=== PATIENT | female | born 1955 | race Two or more races ===

== ENCOUNTER 2024-01-07 17:17 | Inpatient (IN) | payer MEDICAID, SELFPAY ==
[2024-01-07 17:35] VITALS: BMI 36.1
[2024-01-07 17:37] VITALS: BP 172/85; PULSE 82; RESP 19; TEMP 39.2; O2SAT 100
--- NOTE | 2024-01-07 17:50 | XR_ITS ---
Examination: PA chest single view Technique: Upright PA chest single view Exam date and time: January 07, 2024 1807 hrs. Indications: Onset fever today. Findings: Normal heart size No pneumonia or pulmonary edema. The osseous structures are intact Impression: No active disease
--- NOTE | 2024-01-07 17:51 | PD.EDRME ---
Rapid Medical Screening Exam RME Arrival date/time: 01/07/24 17:17 This is a 68-year-old female presents to the emergency department with complaints of fever, chills dysuria does report she started her first radiation for cervical cancer yesterday. I have greeted and performed a focused initial assessment of this patient. Initial appropriate labs ordered at this time. A comprehensive ED assessment and evaluation of the patient and analysis of all test and completion of medical decision making process will be conducted by additional ED provider. Chief Complaint: Weakness Time Seen by Provider: 01/07/24 17:43 Vital signs: Vital Signs Temperature 102.6 F H 01/07/24 17:37 Pulse Rate 82 01/07/24 17:37 Respiratory Rate 19 01/07/24 17:37 Blood Pressure 172/85 H 01/07/24 17:37 Pulse Oximetry (%) 100 01/07/24 17:37 Oxygen Delivery Method Room Air 01/07/24 17:37
[2024-01-07 18:23] LABS: Collection Type, Urine Clean Catch
[2024-01-07 18:27] LABS: Lactate (Lactic Acid) 1.5 mMol/L (0.4-2.0)
[2024-01-07 18:29] LABS: Basophils % (Auto) 0 % (0-2.5); Eosinophils % (Auto) 0 % (0-10); Hematocrit 36.1 % (36.0-46.0); Immature Granulocytes % (Auto) 0 % (0-0); Immature Granulocytes Auto 0.04 Thou/mm3 (0.00-0.00); Lymphocytes # (Auto) 0.5 Thou/mm3 (1.0-4.8); Lymphocytes % (Auto) 4 % (10-50); Mean Corpuscular HGB Conc 33.2 g/dl (31.0-37.0); Mean Corpuscular Hemoglobin 29.7 pg (25.0-35.0); Mean Corpuscular Volume 89 fL (80-100); Monocytes # (Auto) 0.3 Thou/mm3 (0.0-0.8); Monocytes % (Auto) 2 % (0-12); Neutrophils # (Auto) 12.2 Thou/mm3 (1.8-7.7); Neutrophils % (Auto) 94 % (37-80); Nucleated Red Blood Cell % 0 /100 WBC (0); Platelet Count 222 Thou/mm3 (140-440); RDW Standard Deviation 47.3 fL (36.4-46.3); Red Blood Count 4.04 Miln/mm3 (4.00-5.20)
[2024-01-07 18:30] LABS: Bacteria,Urine Rare; Bilirubin,Urine Negative (Negative); Blood,Urine 1+ (Negative); Clarity,Urine Turbid (Clear/Hazy); Color,Urine Lt-Yellow (Lt Yel-Yel); Culture Indicated,Urine Yes; Glucose, Urine Negative (Negative); Ketones,Urine Negative (Negative); Leukocyte Esterase,Urine Positive (Negative); Nitrite,Urine Positive (Negative); Protein,Urine Trace (Neg - Trace); RBC,Urine 14 /hpf (0-3); Specific Gravity,Urine 1.013 (1.001-1.035); Squamous Epithelial Cell,Urine 2 /hpf (0-5); Urobilinogen,Urine Negative mg/dL (0.0-1.0); WBC,Urine 362 /hpf (0-5)
[2024-01-07 18:48] LABS: B-Type Natriuretic Peptide 244 pg/mL (0-100)
[2024-01-07 18:49] LABS: Partial Thromboplastin Time 26.5 Seconds (22.0-36.0); Prothrombin Time 11.4 Seconds (9.0-12.2)
[2024-01-07 18:59] LABS: Alanine Aminotransferase 27 U/L (10-49); Albumin/Globulin Ratio 1.2 (1.2-2.2); Alkaline Phosphatase 89 U/L (46-116); Anion Gap 8 (7-16); Aspartate Amino Transferase 19 U/L (0-34); BUN/Creatinine Ratio 23 Ratio (12-20); Bilirubin,Total 1.4 mg/dL (0.3-1.2); Blood Urea Nitrogen 21 mg/dL (9-23); Calcium 9.2 mg/dL (8.3-10.6); Calcium (Corrected) 9.2 mg/dL (8.5-10.1); Carbon Dioxide 23.3 mMol/L (20.0-31.0); Chloride 105 mMol/L (98-107); Creatinine (Component) 0.9 mg/dL (0.6-1.3); Estimated Creatinine Clearance 62.9 mL/min (>60); Globulin 3.4 gm/dL (2.3-3.5); Glucose 101 mg/dL (74-106); Lipase 30 U/L (12-53); Magnesium 1.8 mg/dL (1.6-2.6); Osmolality,Calculated 274 (275-295); Potassium 3.4 mMol/L (3.4-5.1); Procalcitonin 0.14 ng/ml (0.0-0.49); Sodium 136 mMol/L (136-145); Total Protein 7.4 gm/dL (5.7-8.2); Troponin I < 0.020 ng/mL (0.0-0.045); eGFR > 60 See Note
[2024-01-07 21:48] VITALS: BP 127/77; PULSE 70; RESP 16; TEMP 36.7; O2SAT 99
[2024-01-07] MEDS: ACETAMINOPHEN 500 MG TABLET 1000 MG PO (21:53)
--- NOTE | 2024-01-07 23:51 | EDNOTE_ITS ---
ED Fever RME/HPI General Chief Complaint: Weakness Stated Complaint: HIGH BP AFTER FIRST CHEMO TREATMENT TODAY; SOB Time Seen by Provider: 01/07/24 17:43 Arrival date/time: 01/07/24 17:17 RME / HPI RME / HPI Narrative: 01/07/24 17:17 A 68-year-old female patient with past medical history of cervical cancers, hypertension, started her first radiation therapy yesterday presented today due to fever and chills for 1 day. On questioning patient reported that she has urinary frequency but she denied any dysuria or change in color of urine. Patient also reported that she has epigastric abdominal pain and she believes it is from her gastritis in which she was diagnosed by her PCP and she is taking some pills for that. Patient denied any nausea or vomiting denied any diarrhea or constipation and denied any cough or shortness of breath. Related Data Home Medications ?Medication ?Instructions ?Recorded ?Confirmed hydrocodone 5 mg-acetaminophen 325 1 tab PO Q6H PRN Pain, Moderate 01/08/24 01/08/24 mg tablet hydroxyzine HCl 50 mg tablet 50 mg PO QDAY 01/08/24 01/08/24 ibuprofen 800 mg tablet 800 mg PO TID 01/08/24 01/08/24 losartan 25 mg tablet 25 mg PO QDAY 01/08/24 01/08/24 olanzapine 10 mg tablet 10 mg PO HS 01/08/24 01/08/24 prochlorperazine maleate 5 mg 5 mg PO Q6HR PRN Nausea And 01/08/24 01/08/24 tablet (Compazine) Vomiting Allergies Allergy/AdvReac Type Severity Reaction Status Date / Time No Known Allergies Allergy Verified 01/07/24 17:19 Physical Exam Narrative Physical exam: GEN: AOx3, able to speak full sentences HEENT: NC/AC, PERRLA, oral mucosa moist, neck supple CVS: RRR, S1-S2 present, no murmurs appreciated RESP: CTAB GI: soft,non distended, non tender, NBS MSK: able to move all 4 limbs, no lower extremity edema SKIN: warm and dry INTENSIVE CARE MEDICINE SPECIALIST: CN II-XII and Sensation grossly intact. Course Quality Measures none Orders Category Date Time Status Bedside COVID-19 Antigen Test NOW Care 01/07/24 17:50 Active Bedside Influenza A&B Antigen Test NOW Care 01/07/24 17:50 Completed EKG (ED ONLY) *Do not use* NOW Care 01/07/24 17:24 Completed Insert IV NOW Care 01/08/24 00:21 Active EKG (ED Only) Stat Exams 01/07/24 17:24 Ordered XR chest 1V portable Stat Exams 01/07/24 17:50 Completed B-Type Natriuretic Peptide Stat Lab 01/07/24 18:19 Completed Blood Culture (Lab) Stat Lab 01/07/24 18:21 Received CBC Stat Lab 01/07/24 18:19 Completed Comprehensive Metabolic Panel Stat Lab 01/07/24 18:19 Completed Lactate (Lactic Acid) Stat Lab 01/07/24 18:19 Completed Lipase Stat Lab 01/07/24 18:19 Completed Magnesium Stat Lab 01/07/24 18:19 Completed Partial Thromboplastin Time Stat Lab 01/07/24 18:19 Completed Procalcitonin Stat Lab 01/07/24 18:19 Completed Prothrombin Time with INR Stat Lab 01/07/24 18:19 Completed Troponin I Stat Lab 01/07/24 18:19 Completed Urinalysis Stat Lab 01/07/24 18:16 Completed Urinalysis, C/S if Indicated Stat Lab 01/07/24 18:16 Completed Urine Culture Stat Lab 01/07/24 18:16 Received Acetaminophen Tab [Tylenol ES Tab] Med 01/07/24 17:51 Discontinued 1,000 mg PO X1 ONE Sodium Chloride 0.9% 1000 ml [Ns] 1,000 ml Med 01/07/24 23:38 Discontinued IV 999 mls/hr Sodium Chloride 0.9% 500 ml [Ns] 500 ml Med 01/07/24 23:38 Discontinued IV 999 mls/hr cefTRIAXone/D5w 1gm IV premix [Rocephin/D5w 1gm IV Med 01/07/24 23:39 Discontinued premix] 50 ml IV DAILY@2100 Vital Signs Vital signs: Vital Signs Temperature 102.6 F H 01/07/24 17:37 Pulse Rate 82 01/07/24 17:37 Respiratory Rate 19 01/07/24 17:37 Blood Pressure 172/85 H 01/07/24 17:37 Pulse Oximetry (%) 100 01/07/24 17:37 Oxygen Delivery Method Room Air 01/07/24 17:37 Fever MDM Narrative MDM Narrative:: Patient was found to have fulfill sepsis criteria with temperature of 102.6 and WBC of 13. Chest x-ray was negative however urine analysis showed +362 WBCs and 14 RBCs and positive bacteria. Patient found to have sepsis, sepsis alert was initiated patient was given IV fluid boluses and was started on ceftriaxone single dose. To bilirubin was found to be 1.4, lactic acid 1.5 normal, troponin within normal limits and BNP was mildly elevated of 244. Patient data External records reviewed:: [facility] previous records Clinical information provided by:: patient, EMS and family Social determinants that could affect healthcare access:: none Patient has the following chronic illnesses:: Cervical cancer How is presenting disease/condition affected by chronic disease/condition?: exacerbated by Evaluation data The following diagnostics were reviewed and interpreted by me:: lab results, radiology exam(s) and EKG tracing(s) Lab and/or radiology exams considered but not ordered:: None Interpretation Summary: Sepsis secondary to UTI Patient will need further workup to rule out malignancy of the urinary bladder. Medications / Prescriptions Medications or Prescriptions considered but not ordered:: None Medication administrations:: Medication Administration History Acetaminophen (Acetaminophen 325 Mg Tablet) 650 mg PO Q6H PRN PRN Reason: Fever >101.5 Stop: 02/07/24 00:38 Enoxaparin Sodium (Enoxaparin Sod Inj 40 Mg/0.4 Ml Syringe) 40 mg SC QDAY [facility] Stop: 01/22/24 08:59 Sodium Chloride (Ns) 1,000 mls @ 100 mls/hr IV .Q10H ONE Stop: 01/08/24 10:44 Last Admin: 01/08/24 01:35 Dose: 100 mls/hr Documented By: ARNOLDO Ceftriaxone Sodium/Dextrose (Rocephin/D5w 1gm Iv Premix) 50 mls @ 100 mls/hr IV QDAY JAMMIE Stop: 01/15/24 08:59 Pantoprazole Sodium (Pantoprazole 40 Mg Tablet) 40 mg PO QDAY [facility] Stop: 02/07/24 08:59 Discontinued Medications Acetaminophen (Acetaminophen 500 Mg Tablet) 1,000 mg PO X1 ONE Stop: 01/07/24 17:52 Last Admin: 01/07/24 21:53 Dose: 1,000 mg Documented By: ARNOLDO Sodium Chloride (Ns) 500 mls @ 999 mls/hr IV .Q31M ONE Stop: 01/08/24 00:08 Last Infusion: 01/08/24 02:25 Dose: Infused Documented By: Admin: 01/08/24 00:28 Dose: 999 mls/hr Documented By: ARNOLDO Sodium Chloride (Ns) 1,000 mls @ 999 mls/hr IV .Q1H1M ONE Stop: 01/08/24 00:38 Last Infusion: 01/08/24 02:25 Dose: Infused Documented By: Admin: 01/08/24 00:28 Dose: 999 mls/hr Documented By: ARNOLDO Ceftriaxone Sodium/Dextrose (Rocephin/D5w 1gm Iv Premix) 50 mls @ 100 mls/hr IV DAILY@2100 JAMMIE Stop: 01/14/24 23:38 Last Infusion: 01/08/24 01:28 Dose: Infused Documented By: Admin: 01/08/24 00:29 Dose: 100 mls/hr Documented By: ARNOLDO None Consultations Consultation(s) initiated? (list below): Yes Diagnosis Fever Differential Diagnosis: sepsis Most likely diagnosis given after review of the tests above:: Sepsis secondary UTI Admission Indicated Admission indicated?: indicated Admission Request Was there a request for admission?: Yes Admission Attestation Admission request attestation: Discussed case with [] from Hospitalist service regarding admission. Discussed patients ED course, exam findings, labs, and radiology results. The Hospitalist [agrees,declines] to accept the patient for admission. Disposition Plan Disposition Plan: Admit Discharge Plan Plan Patient Disposition: Admit Acute Care w/in Hospital Problem List Clinical Impression: Sepsis
[2024-01-08] VITALS (8 sets, daily range): BP systolic 117–138; BP diastolic 60–79; PULSE 55–78; RESP 16–18; TEMP 36–38; O2SAT 95–98; BMI 37.3
[2024-01-08] MEDS: SODIUM CHLORIDE 0.9% 1000 ML 1,000 ML 999 ML IV (00:28)
[2024-01-08] MEDS: SODIUM CHLORIDE 0.9% 500 ML 500 ML 999 ML IV (00:28)
[2024-01-08] MEDS: cefTRIAXone/D5w 1gm IV premix 50 ML IV ×2 (00:29→09:26)
--- NOTE | 2024-01-08 01:22 | ESHP_ITS ---
Documentation for date of: 01/08/24 [facility] History of Present Illness Chief complaint: Fever and chills History of present illness: 68 y/o F with PMHx significant for anxiety, hypertension, cervical cancer with recently started chemo and radiation therapy presenting from home with chief complaint of fever and chills x 1 day. Patient had her radiation therapy session Wednesday?Wednesday, chemotherapy on Wednesday. Patient began experiencing burning epigastric pain with decreased appetite yesterday. Today she noted severe subjective fevers and chills prompting ER visit. Patient also notes urinary hesitancy. Patient denies nausea, vomiting, chest pain, shortness of breath. ED COURSE: Labs significant for: WBC 13, UA positive nitrites, positive leuk esterase, 360 WBCs, rare bacteria. Blood and urine cultures pending. Imaging significant for: Chest x-ray unremarkable. Patient met 2/4 SIRS criteria: Fever 102.6, leukocytosis 13.0. Patient received 1 g Tylenol, 1 dose of Rocephin, 1.5 L bolus normal saline in the ED. PMH: Hypertension, anxiety, cervical cancer PSH: None SH: Denies alcohol and tobacco use. Denies illicit drug use. Allergies:?NKDA Medications: [place], hydroxyzine, olanzapine, Compazine, losartan Review of Systems Review of Systems Systems Reviewed: All systems reviewed, normal except as documented Past Medical History Past Medical History Comments PMH COMMENT: PMH: Hypertension, anxiety, cervical cancer PSH: None SH: Denies alcohol and tobacco use. Denies illicit drug use. Allergies:?NKDA Medications: [place], hydroxyzine, olanzapine, Compazine, losartan Exam Vital Signs Temp Pulse Resp BP Pulse Ox O2 Del Method 98.6 F 68 18 132/67 H 98 Room Air 01/08/24 00:52 01/08/24 00:52 01/08/24 00:52 01/08/24 00:52 01/08/24 00:52 01/08/24 00:52 Narrative Exam PE: Gen: Well-developed and well-nourished. HEENT: NCAT, PERRLA, EOMI, MMM, anicteric conjunctivae. CVS: normal S1 and S2. RRR. No M/R/G. Resp: CTA B/L. No rhonchi, rales, crackles or wheezing. Abd: soft, non-distended. Mild epigastric tenderness, mild right lower quadrant tenderness. MSK: Good ROM in BUE & BLE. No edema or rash. Neuro: CN II-XII grossly intact. Strength 5/5 in BUE & BLE. Alert and oriented x3. Psych: appropriate mood and affect. Results: Labs 01/07/24 18:19 01/07/24 18:19 Labs: Short CBC 01/07/24 Range/Units 18:19 WBC 13.0 H (3.6-11.0) Thou/mm3 Hgb 12.0 (12.0-16.0) g/dL Hct 36.1 (36.0-46.0) % Plt Count 222 (140-440) Thou/mm3 BMP 01/07/24 18:19 Sodium 136 Potassium 3.4 Chloride 105 Carbon Dioxide 23.3 BUN 21 Creatinine 0.9 Glucose 101 Calcium 9.2 Cardiac Enzymes 01/07/24 Range/Units 18:19 Troponin I < 0.020 (0.0-0.045) ng/mL Liver Function 01/07/24 Range/Units 18:19 Total Bilirubin 1.4 H (0.3-1.2) mg/dL AST 19 (0-34) U/L ALT 27 (10-49) U/L Alkaline Phosphatase 89 (46-116) U/L Albumin 4.0 (3.4-4.8) gm/dL Urine 01/07/24 Range/Units 18:16 Urine Color Lt-Yellow (Lt Yel-Yel) Urine Clarity Turbid A (Clear/Hazy) Urine pH 6.0 (5.0-7.0) Ur Specific [place] 1.013 (1.001-1.035) Urine Protein Trace (Neg - Trace) Urine Glucose (UA) Negative (Negative) Quality Measures Quality Measures VTE prophylaxis Advance care planning discussed with:: patient and child Medications Home Medications and Allergies Home Medications ?Medication ?Instructions ?Recorded ?Confirmed ?Type hydrocodone 5 mg-acetaminophen 325 1 tab PO Q6H PRN Pain, Moderate 01/08/24 01/08/24 History mg tablet hydroxyzine HCl 50 mg tablet 50 mg PO QDAY 01/08/24 01/08/24 History ibuprofen 800 mg tablet 800 mg PO TID 01/08/24 01/08/24 History losartan 25 mg tablet 25 mg PO QDAY 01/08/24 01/08/24 History olanzapine 10 mg tablet 10 mg PO HS 01/08/24 01/08/24 History prochlorperazine maleate 5 mg 5 mg PO Q6HR PRN Nausea And 01/08/24 01/08/24 History tablet (Compazine) Vomiting Allergies Allergy/AdvReac Type Severity Reaction Status Date / Time No Known Allergies Allergy Verified 01/07/24 17:19 Visit Medications Acetaminophen (Acetaminophen 325 Mg Tablet) 650 mg PO Q6H PRN PRN Reason: Fever >101.5 Stop: 02/07/24 00:38 Enoxaparin Sodium (Enoxaparin Sod Inj 40 Mg/0.4 Ml Syringe) 40 mg SC QDAY [facility] Stop: 01/22/24 08:59 Ceftriaxone Sodium/Dextrose (Rocephin/D5w 1gm Iv Premix) 50 mls @ 100 mls/hr IV DAILY@2100 JAMMIE Stop: 01/14/24 23:38 Last Admin: 01/08/24 00:29 Dose: 100 mls/hr Sodium Chloride (Ns) 1,000 mls @ 100 mls/hr IV .Q10H ONE Stop: 01/08/24 10:44 Ceftriaxone Sodium/Dextrose (Rocephin/D5w 1gm Iv Premix) 50 mls @ 100 mls/hr IV QDAY [facility] Stop: 01/15/24 08:59 Discontinued Medications Acetaminophen (Acetaminophen 500 Mg Tablet) 1,000 mg PO X1 ONE Stop: 01/07/24 17:52 Last Admin: 01/07/24 21:53 Dose: 1,000 mg Sodium Chloride (Ns) 500 mls @ 999 mls/hr IV .Q31M ONE Stop: 01/08/24 00:08 Last Admin: 01/08/24 00:28 Dose: 999 mls/hr Sodium Chloride (Ns) 1,000 mls @ 999 mls/hr IV .Q1H1M ONE Stop: 01/08/24 00:38 Last Admin: 01/08/24 00:28 Dose: 999 mls/hr Assessment & Plan Plan 68 y/o F with PMHx significant for anxiety, hypertension, cervical cancer with recently started chemo and radiation therapy presenting from home with chief complaint of fever and chills x 1 day, admitted for sepsis secondary to UTI. #Sepsis secondary to #UTI Patient presented with chief complaint of fevers and chills. UA on admission showed positive nitrates, positive leukocyte esterase, 362 WBCs, rare bacteria. Patient notes urinary hesitancy. Patient met 2/4 SIRS criteria: Fever 102.6, leukocytosis 13.0. Patient received 1 g Tylenol, 1.5 L bolus normal saline, Rocephin in the ED. -Ceftriaxone 1 g IV daily (started 01/06) -Tylenol 650 mg p.o. every 6 hours as needed for fever or pain -IVF: Normal saline 100 mL/h -Blood/urine cultures pending, follow-up #Cervical cancer #Potential gastritis Patient history of cervical cancer, started chemotherapy and radiation therapy this week. Shortly after starting patient developed epigastric burning pain and decreased appetite. Suspect gastritis in setting of chemotherapy. -Protonix 40 mg p.o. daily #Hypertension #Anxiety Patient history of hypertension, anxiety. Treated with outpatient medications. Med rec's pending. -Consider resuming home meds status post med rec's DVT prophylaxis: Lovenox GI prophylaxis: Protonix Diet: Cardiac Lines: Peripheral IV Code status: Full code Plan of care discussed with senior resident Dr. Musa PGY?[address] Kapoor. Altaf Persaud MD PGY-1 Senior resident attestation: I discussed with and supervised the photo intern physician who took care of this patient. I personally saw and examined the patient and discussed the assessment and plan with the entire medicine team, including my attending Dr. Kapoor , I agree with the assessment and plan as documented above. MD Dimple PGY2 Attending Provider Attestation/Addendum Pt was evaluated and plan formulated together with the housestaff team. I have reviewed the residents note above and agree with most of its content. Please refer to the residents note for additional details.
[2024-01-08] MEDS: SODIUM CHLORIDE 0.9% 1000 ML 1,000 ML 100 ML IV (01:35)
[2024-01-08 05:28] LABS: Basophils % (Auto) 0 % (0-2.5); Eosinophils # (Auto) 0.1 Thou/mm3 (0.0-0.5); Eosinophils % (Auto) 1 % (0-10); Hematocrit 30.3 % (36.0-46.0); Hemoglobin 9.9 g/dL (12.0-16.0); Immature Granulocytes % (Auto) 1 % (0-0); Lymphocytes # (Auto) 0.8 Thou/mm3 (1.0-4.8); Lymphocytes % (Auto) 7 % (10-50); Mean Corpuscular HGB Conc 32.7 g/dl (31.0-37.0); Mean Corpuscular Hemoglobin 29.6 pg (25.0-35.0); Mean Corpuscular Volume 91 fL (80-100); Monocytes # (Auto) 0.5 Thou/mm3 (0.0-0.8); Monocytes % (Auto) 4 % (0-12); Neutrophils # (Auto) 10.1 Thou/mm3 (1.8-7.7); Neutrophils % (Auto) 87 % (37-80); Nucleated Red Blood Cell % 0 /100 WBC (0); Platelet Count 172 Thou/mm3 (140-440); RDW Standard Deviation 48.3 fL (36.4-46.3); Red Blood Count 3.34 Miln/mm3 (4.00-5.20); White Blood Count 11.6 Thou/mm3 (3.6-11.0)
[2024-01-08 06:04] LABS: Anion Gap 7 (7-16); BUN/Creatinine Ratio 23 Ratio (12-20); Blood Urea Nitrogen 18 mg/dL (9-23); Calcium 7.9 mg/dL (8.3-10.6); Carbon Dioxide 21.8 mMol/L (20.0-31.0); Chloride 109 mMol/L (98-107); Creatinine (Component) 0.8 mg/dL (0.6-1.3); Estimated Creatinine Clearance 74.7 mL/min (>60); Glucose 90 mg/dL (74-106); Osmolality,Calculated 277 (275-295); Potassium 3.7 mMol/L (3.4-5.1); Sodium 138 mMol/L (136-145); eGFR > 60 See Note
[2024-01-08] MEDS: ENOXAPARIN SOD INJ 40 MG/0.4 ML SYRINGE SC (09:26)
[2024-01-08] MEDS: PANTOPRAZOLE 40 MG TABLET PO (09:26)
--- NOTE | 2024-01-08 09:30 | XR_ITS ---
Examination: Abdomen sonogram, Limited Date and time of exam: January 08, 2024 1038 hrs. Indications: Abdominal pain beginning 3 days ago Technique: Real-time khanna scale transabdominal sonographic images of the upper abdomen obtained. Findings: Multiple gallstones Gallbladder wall is thickened 0.8 cm Normal common bile duct Pancreatic head 2.1 cm Liver 12.1 cm no focal liver lesions Normal hepatopedal portal venous flow Patent IVC Incidental note moderate right hydronephrosis Impression: Cholelithiasis, recommend HIDA scan or MRCP follow-up to confirm cholecystitis Incidental note moderate right hydronephrosis
[2024-01-08] MEDS: HYDROcodone/APAP 5/325 TABLET 1 TAB PO ×2 (09:41→18:52)
--- NOTE | 2024-01-08 10:21 | PC.SS ---
Patient Gracie Jimenez is a 68 Year old female admitted for UTI. SS met with patient and patient's daughter to discuss discharge plan. Patient reports she lives at home with family. She reports he sonMelchor is her surrogate decision maker [phone]. Patient does not utilize any source of DME to assist with ambulation. [facility] At time of discharge patient will return home. Discharge plan: Home Next of kin: Melchor joiner PCP: Ainsley Hinton
[2024-01-08] MEDS: Artificial Tears 225 DROP/15 ML BTL BOTH EYES (14:21)
--- NOTE | 2024-01-08 14:33 | XR_ITS ---
Examination: CT abdomen and pelvis without contrast. Coronal 3-D reconstructions. Sagittal 2-D reconstructions. Date and time of exam:January 18, 2024 1619 hrs. Indications: Gallbladder sonogram today moderate right hydronephrosis CTDI: vol (mGy): 13.5 DLP: (mGycm): 708 Technique: Axial images of the abdomen have been obtained, 3 mm slice thickness Intravenous contrast material has not been administered. Low dose protocols were performed. One or more of the following dose reduction techniques were used; automated exposure control, adjustment of the mA and/or KV according to patient size, use of iterative reconstruction technique. Findings: Small liver calcification Gallbladder wall appears thickened and edematous Spleen is not enlarged No pancreatic or adrenal mass Moderate bilateral renal parenchymal scar formation Perinephric stranding Moderate right mild left hydronephrosis No renal or ureteral calculi Aorta normal size Normal appendix No bowel obstruction Enlarged fundus of uterus with markedly abnormal enlarged endometrium in the fundal region 8 cm Urinary bladder intact Grade 1 anterolisthesis L4 on L5 with 4 mm central lumbar disc bulge Impression: Moderate right mild left hydronephrosis without ureteral calculi, perinephric stranding is present, consider urinary tract infection, ureterovesical reflux as well as partial obstruction by enlarged uterus, clinical correlation advised Markedly abnormal thickening of the uterine fundal endometrium up to 8 cm, differential would include endometrial hyperplasia, malignant neoplasm of the endometrium 4.7 cm left adnexal hypodense mass,. Recommend pelvic sonography follow-up Acute cholecystitis
--- NOTE | 2024-01-08 14:35 | XR_ITS ---
MRI abdomen, without contrast. MRCP Date and time of exam: January 18, 2024 1558 hrs. Indications: Abdominal pain this week, gallbladder sonography today gallbladder wall is thickened with multiple gallstones Technique: Multiple axial and coronal images of the abdomen have been obtained with the Siemens 1.5T MRI scanner. Images obtained included T1 weighted transverse images, T2-weighted transverse images, T2-weighted transverse images fat-suppressed, T2 weighted haste fat suppressed transverse images, T1 weighted images, in and out of phase images, T2-weighted coronal images, breath hold, T2 weighted haze coronal images as well as T2 weighted coronal thick slab images, MRCP. Findings: Multiple gallstones Gallbladder wall does not appear thickened on this study No common hepatic or common bile duct stones No pancreatic mass or peripancreatic edema Spleen is not enlarged Mild to moderate renal parenchymal scar formation with minimal perinephric stranding Impression: Cholelithiasis, negative for cholecystitis No common hepatic or common bile duct stones Negative for pancreatitis
[2024-01-08 15:33] LABS: Alanine Aminotransferase 22 U/L (10-49); Albumin, Serum 3.4 gm/dL (3.4-4.8); Alkaline Phosphatase 97 U/L (46-116); Aspartate Amino Transferase 15 U/L (0-34); Bilirubin,Direct 0.2 mg/dL (0.0-0.3); Bilirubin,Total 0.5 mg/dL (0.3-1.2)
--- NOTE | 2024-01-08 16:33 | ESPR_ITS ---
Documentation for date of: 01/08/24 Subjective Subjective Interval history: Patient seen at bedside. She is a 68-year-old female with a past medical history of hypertension, anxiety, cervical cancer recently started on chemoradiation who presented to the ED on 01/07/2024 with complaints of epigastric pain, subjective fevers and chills. UA was positive for UTI with rare bacteria and chest x-ray was unremarkable, WBC was 13. Patient meets 2/4 SIRS criteria with fever 102.6 and leukocytosis, received 1.5 L bolus normal saline in the ED and was started on IV Rocephin. At bedside today, patient complains of epigastric and right upper quadrant pain, T. bili 1 cm milligram 1.4 gallbladder ultrasound was ordered which showed cholelithiasis, to follow-up with imaging to evaluate possible cholecystitis. Gallbladder ultrasound also showed moderate right hydronephrosis, will follow-up with CT abdomen/pelvis. Exam Vital Signs Temp Pulse Resp BP Pulse Ox O2 Del Method 98.0 F 78 18 137/79 H 97 Room Air 01/08/24 16:00 01/08/24 16:00 01/08/24 16:00 01/08/24 16:00 01/08/24 16:00 01/08/24 16:00 Narrative Exam GENERAL: AAOX3 NEURO: STRAIGHTENING PRESS OPERATOR grossly intact, moves extremities x4 HEENT: Moist mucosa. Eyes open, symmetrical, & clear CARDIO: No chest pain on palpation. Heart RRR, no obvious murmurs PULM: No noted coughing/dyspnea. Lungs CTA B/L GI: Abdomen soft, nondistended, tenderness to palpation in the epigastric and right upper quadrant. Negative Gentile sign. BSx4 URO/CLAIM PROCESSING SPECIALIST:: No further abnormalities noted. SKIN/MSK/EXT: No wounds/rashes/edema/amputations, no pain on palpation. Pedal pulses present B/L Objective Labs 01/09/24 04:30 01/09/24 04:30 Labs: Laboratory Results - last 24 hr 01/07/24 01/07/24 01/08/24 18:16 18:19 04:40 WBC 13.0 H 11.6 H RBC 4.04 3.34 L Hgb 12.0 9.9 L D Hct 36.1 30.3 L MCV 89 91 MCH 29.7 29.6 MCHC 33.2 32.7 RDW Std Deviation 47.3 H 48.3 H Plt Count 222 172 D Neut % (Auto) 94 H 87 H Lymph % (Auto) 4 L 7 L [place] % (Auto) 2 4 Eos % (Auto) 0 1 Baso % (Auto) 0 0 Neut # (Auto) 12.2 H 10.1 H Lymph # (Auto) 0.5 L 0.8 L [place] # (Auto) 0.3 0.5 Eos # (Auto) 0.0 0.1 Baso # (Auto) 0.0 0.0 Immature Gran # (Auto) 0.04 H 0.10 H Absolute Nucleated RBC 0.00 0.00 Immature Gran % 0 1 H Nucleated RBC % 0 0 PT 11.4 INR 1.0 APTT 26.5 Sodium 136 138 Potassium 3.4 3.7 Chloride 105 109 H Carbon Dioxide 23.3 21.8 Anion Gap 8 7 BUN 21 18 Creatinine 0.9 0.8 Estim Creat Clear Calc 62.9 74.7 eGFR > 60 > 60 BUN/Creatinine Ratio 23 H 23 H Glucose 101 90 Calculated Osmolality 274 L 277 Lactic Acid 1.5 Calcium 9.2 7.9 L Corrected Calcium 9.2 Magnesium 1.8 Total Bilirubin 1.4 H Direct Bilirubin AST 19 ALT 27 Alkaline Phosphatase 89 Troponin I < 0.020 B-Natriuretic Peptide 244 H Total Protein 7.4 Albumin 4.0 Globulin 3.4 Albumin/Globulin Ratio 1.2 Lipase 30 Procalcitonin 0.14 Ur Collection Type Clean Catch Urine Color Lt-Yellow Urine Clarity Turbid A Urine pH 6.0 Ur Specific [place] 1.013 Urine Protein Trace Urine Glucose (UA) Negative Urine Ketones Negative Urine Blood 1+ A Urine Nitrite Positive Urine Bilirubin Negative Urine Urobilinogen (Auto) Negative Ur Leukocyte Esterase Positive Urine RBC 14 H Urine WBC 362 H Ur Squamous Epith Cells 2 Urine Bacteria Rare Ur Culture Indicated? Yes 01/08/24 14:52 WBC RBC Hgb Hct MCV MCH MCHC RDW Std Deviation Plt Count Neut % (Auto) Lymph % (Auto) [place] % (Auto) Eos % (Auto) Baso % (Auto) Neut # (Auto) Lymph # (Auto) [place] # (Auto) Eos # (Auto) Baso # (Auto) Immature Gran # (Auto) Absolute Nucleated RBC Immature Gran % Nucleated RBC % PT INR APTT Sodium Potassium Chloride Carbon Dioxide Anion Gap BUN Creatinine Estim Creat Clear Calc eGFR BUN/Creatinine Ratio Glucose Calculated Osmolality Lactic Acid Calcium Corrected Calcium Magnesium Total Bilirubin 0.5 D Direct Bilirubin 0.2 AST 15 ALT 22 Alkaline Phosphatase 97 Troponin I B-Natriuretic Peptide Total Protein 6.0 Albumin 3.4 D Globulin Albumin/Globulin Ratio Lipase Procalcitonin Ur Collection Type Urine Color Urine Clarity Urine pH Ur Specific [place] Urine Protein Urine Glucose (UA) Urine Ketones Urine Blood Urine Nitrite Urine Bilirubin Urine Urobilinogen (Auto) Ur Leukocyte Esterase Urine RBC Urine WBC Ur Squamous Epith Cells Urine Bacteria Ur Culture Indicated? Quality Measures Quality Measures none Advance care planning discussed with:: patient and child Assessment & Plan Assessment Current Active Medications: Generic Name Dose Route Start Last Admin Trade Name Freq PRN Reason Stop Dose Admin Acetaminophen 650 mg 01/08/24 00:39 Acetaminophen 325 Mg Tablet PO 02/07/24 00:38 Q6H PRN Fever >101.5 Hydrocodone Bitart/Acetaminophen 1 tab 01/08/24 09:28 01/08/24 09:41 Hydrocodone/Apap 5/325 Tablet PO 01/13/24 09:27 1 tab Q6HR PRN Administration PAIN SCALE 4-10(Mod-Sev Artificial Tears 0 drop 01/08/24 06:44 01/08/24 14:21 Artificial Tears 225 Drop/15 Ml Btl BOTH EYES 02/07/24 06:43 1 applicatio PRN PRN Administration TO KEEP EYES MOIST Enoxaparin Sodium 40 mg 01/08/24 09:00 01/08/24 09:26 Enoxaparin Sod Inj 40 Mg/0.4 Ml Syringe SC 01/22/24 08:59 40 mg QDAY JAMMIE Administration Hydroxyzine HCl 50 mg 01/08/24 21:00 Hydroxyzine Hcl 25 Mg Tablet PO 02/07/24 20:59 HS JAMMIE Ceftriaxone Sodium/Dextrose 50 mls @ 100 mls/hr 01/08/24 09:00 01/08/24 09:26 Rocephin/D5w 1gm Iv Premix IV 01/15/24 08:59 100 mls/hr QDAY JAMMIE Administration Olanzapine 10 mg 01/08/24 21:00 Olanzapine 5 Mg Tablet PO 02/07/24 20:59 HS JAMMIE Ondansetron HCl 4 mg 01/08/24 09:30 Ondansetron Inj 2 Mg/Ml Inj 2 Ml IV 02/07/24 09:29 Q6HR PRN NAUSEA OR VOMITING Protocol Pantoprazole Sodium 40 mg 01/08/24 09:00 01/08/24 09:26 Pantoprazole 40 Mg Tablet PO 02/07/24 08:59 40 mg QDAY JAMMIE Administration Prochlorperazine Maleate 5 mg 01/08/24 10:40 Prochlorperazine Maleate 5 Mg Tablet PO 02/07/24 10:39 Q6HR PRN Nausea And Vomiting Plan Summary: The patient is a 68 y/o F with PMHx significant for anxiety, hypertension, cervical cancer with recently started chemo and radiation therapy presenting from home with chief complaint of fever and chills x 1 day, admitted for sepsis secondary to UTI. #Sepsis secondary to #UTI #Leukocytosis Patient presented with chief complaint of fevers and chills. UA on admission showed positive nitrates, positive leukocyte esterase, 362 WBCs, rare bacteria. Patient notes urinary hesitancy. Patient met 2/4 SIRS criteria: Fever 102.6, leukocytosis 13.0. Patient received 1 g Tylenol, 1.5 L bolus normal saline, Rocephin in the ED. Currently on ceftriaxone 1 g IV daily (started 01/06) -Blood/urine cultures pending, follow-up Plan: -Continue IV ceftriaxone -Pending blood and urine cultures -Continue to monitor CBC #Hyperbilirubinemia T. bili on admission, 1.4 patient did complain of epigastric and right upper quadrant pain. Gallbladder ultrasound showed numerous gallstones, to follow-up with imaging for suspicion of cholecystitis. Plan: -Repeat LFTs -MRCP #Incidental finding of hydronephrosis Gallbladder ultrasound showed moderate right-sided hydronephrosis As patient does have a history of malignancy and is currently undergoing therapy, will follow-up. Plan: -CT abdomen pelvis #Cervical cancer #Chemotherapy induced gastritis Patient history of cervical cancer, started chemotherapy and radiation therapy this week. Shortly after starting patient developed epigastric burning pain and decreased appetite. Suspect gastritis in setting of chemotherapy. -Protonix 40 mg p.o. daily -Prochlorperazine 5mg PRN #Hypertension #Anxiety Patient history of hypertension, anxiety. Treated with outpatient medication- losartan -Holding antihypertensives for now DVT prophylaxis: Lovenox GI prophylaxis: Protonix Diet: Cardiac Lines: Peripheral IV Code status: Full code Case was discussed with senior resident Dr Hurley PGY-3 and attending physician, Dr Luana Johnston MD PGY-1 LI discussed with and supervised the general internal medicine physician physician who took care of this patient. I personally saw and examined the patient and discussed the assessment and plan with the entire medicine team, including my attending Dr. Alex Craft MD. I agree with the assessment and plan as documented above. Claude Hurley M.D. Internal Medicine PGY-3 Attending Provider Attestation/Addendum Face to face evaluation was performed by me. I have personally seen and examined the patient. I discussed the assessment and plan with the entire medicine team. I reviewed available medical records, imaging studies, laboratory results. I agree with the above subjective data, objective findings, assessment and plan except as corrected by me or noted below #Sepsis secondary to #UTI #Leukocytosis # Epigastric pain Empiric antibiotics follow culture data
[2024-01-08] MEDS: ONDANSETRON INJ 2 MG/ML INJ 2 ML 4 MG IV (19:25)
[2024-01-08] MEDS: hydrOXYzine HCL 25 MG TABLET 50 MG PO (20:52)
[2024-01-08] MEDS: OLANZapine 5 MG TABLET 10 MG PO (20:52)
[2024-01-08] MEDS: ACETAMINOPHEN 325 MG TABLET 650 MG PO (23:59)
[2024-01-09] VITALS: BP 137/68; PULSE 78; RESP 18; TEMP 38; O2SAT 98
[2024-01-09 00:59] VITALS: TEMP 37.3
[2024-01-09 04:00] VITALS: BP 119/63; PULSE 68; RESP 16; TEMP 36.9; O2SAT 96
--- NOTE | 2024-01-09 04:24 | PC.NURSE ---
called Dr. Shelby regarding patient having multiple episodes of large discharge from her vagina and saturated pad. Patient states she's had occasional discharge since she's been diagnosed with cervical cancer but not as much as she's having right now. Discharge is foul-smelling, greenish-yellow color with a thick consistency. Patient denies any pain, itchiness, or burning in her vagina or when urinating.
[2024-01-09 05:12] LABS: Basophils # (Auto) 0.1 Thou/mm3 (0.0-0.2); Basophils % (Auto) 1 % (0-2.5); Eosinophils % (Auto) 0 % (0-10); Hematocrit 33.5 % (36.0-46.0); Immature Granulocytes % (Auto) 1 % (0-0); Immature Granulocytes Auto 0.13 Thou/mm3 (0.00-0.00); Lymphocytes # (Auto) 1.1 Thou/mm3 (1.0-4.8); Lymphocytes % (Auto) 10 % (10-50); Mean Corpuscular HGB Conc 32.8 g/dl (31.0-37.0); Mean Corpuscular Volume 88 fL (80-100); Monocytes # (Auto) 0.5 Thou/mm3 (0.0-0.8); Monocytes % (Auto) 4 % (0-12); Neutrophils # (Auto) 8.7 Thou/mm3 (1.8-7.7); Neutrophils % (Auto) 83 % (37-80); Nucleated Red Blood Cell % 0 /100 WBC (0); Platelet Count 146 Thou/mm3 (140-440); RDW Standard Deviation 46.5 fL (36.4-46.3); Red Blood Count 3.79 Miln/mm3 (4.00-5.20); White Blood Count 10.5 Thou/mm3 (3.6-11.0)
[2024-01-09 05:58] LABS: Alanine Aminotransferase 21 U/L (10-49); Albumin, Serum 3.7 gm/dL (3.4-4.8); Albumin/Globulin Ratio 1.2 (1.2-2.2); Alkaline Phosphatase 100 U/L (46-116); Anion Gap 8 (7-16); Aspartate Amino Transferase 14 U/L (0-34); BUN/Creatinine Ratio 13 Ratio (12-20); Bilirubin,Total 0.7 mg/dL (0.3-1.2); Blood Urea Nitrogen 14 mg/dL (9-23); Calcium 8.7 mg/dL (8.3-10.6); Calcium (Corrected) 8.9 mg/dL (8.5-10.1); Carbon Dioxide 23.3 mMol/L (20.0-31.0); Chloride 104 mMol/L (98-107); Creatinine (Component) 1.1 mg/dL (0.6-1.3); Estimated Creatinine Clearance 54.3 mL/min (>60); Glucose 101 mg/dL (74-106); Magnesium 1.8 mg/dL (1.6-2.6); Osmolality,Calculated 270 (275-295); Potassium 3.2 mMol/L (3.4-5.1); Sodium 135 mMol/L (136-145); Total Protein 6.7 gm/dL (5.7-8.2); eGFR 54 See Note
[2024-01-09 07:34] VITALS: BP 148/74; PULSE 65; RESP 16; TEMP 37.2; O2SAT 97
[2024-01-09] MEDS: ENOXAPARIN SOD INJ 40 MG/0.4 ML SYRINGE SC (08:35)
[2024-01-09] MEDS: cefTRIAXone/D5w 1gm IV premix 50 ML IV (08:35)
[2024-01-09] MEDS: PANTOPRAZOLE 40 MG TABLET PO (08:36)
[2024-01-09] MEDS: POTASSIUM CHLORIDE 20 mEq TABCR 40 MEQ PO (08:36)
[2024-01-09 12:00] VITALS: BP 107/87; PULSE 71; RESP 18; TEMP 36.6; O2SAT 98
--- NOTE | 2024-01-09 13:57 | ESDS_ITS ---
Planned Discharge Date 01/09/24 DS: Providers Provider Date of admission: 01/08/24 00:39 Primary care physician: Ainsley Hinton NP Admitting Provider: Kendell Kapoor MD Attending Provider on Admission: Kendell Kapoor MD Consults: 01/08/24 03:20 [facility] Referral - Knowledge Deficit Routine Comment: Positive screening for knowledge deficit needs. Attending Provider on DC: Carlos Johnston MD Discharging Provider: Carlos Johnston MD DS: Diagnosis Problem List Completed Was Problem List Reviewed/Reconciled?: Yes Hospital Course Hospital Course Hospital course: The patient is a 68-year-old female with a past medical history of hypertension, anxiety and cervical cancer who recently started chemoradiation therapy, who presented to the ED on 01/08/2024 with complaints of abdominal pain, fever and chills that lasted a day prior to presentation. Initial labs were significant for leukocytosis and UA was positive for UTI, however patient denies dysuria or any other urinary symptoms. Chest x-ray was unremarkable. Patient met 2/4 SIRS criteria with fever and leukocytosis and was admitted for management of sepsis secondary to UTI and likely gastritis. The patient was treated on IV Rocephin 1 g daily and blood and urine cultures were sent. As the patient had persistent abdominal pain and mild hyperbilirubinemia, evaluation of cholecystitis was done by ultrasound and MRCP which returned negative. Additionally, patient has been on ibuprofen which was discontinued patient was counseled on side effects of using NSAIDs including gastric ulcers. In urine cultures returned positive for E. coli which is sensitive to ceftriaxone and the patient was transitioned to cephalexin 500 mg 4 times a day to complete the antibiotic course. Today, the patient is clinically and hemodynamically stable, she is medically cleared for discharge home. The patient was prescribed pantoprazole and sucralfate can be used for gastric protection as well as to continue the antibiotic course. She will follow-up with a primary care provider within 1 week. Patient was also advised that if symptoms persist she might eventually need endoscopy, and will need to be referred by her primary care to desk manager. In the interim, she was recommended to stop taking ibuprofen and other similar medications and informed that could also be a side effect of chemotherapy. All questions and concerns were addressed. #Sepsis secondary to UTI #Hyperbilirubinemia-resolved #Gastritis #Hypertension Case was discussed with senior resident Dr Penta PGY-3 and attending physician, Dr Luana Johnston MD PGY-1 I discussed with and supervised the internal controls specialist physician who took care of this patient. I personally saw and examined the patient and discussed the assessment and plan with the entire medicine team, including my attending Dr. Alex Craft MD. I agree with the assessment and plan as documented above. Claude Hurley M.D. Internal Medicine PGY-2 Status at Discharge Overall status at discharge: patient is progressing back to baseline Time Spent with Patient Time attestation: Total time spent providing and/or coordinating discharge services:more than 30minutes Exam Vital Signs Temp Pulse Resp BP Pulse Ox O2 Del Method 97.8 F 71 18 107/87 H 98 Room Air 01/09/24 12:00 01/09/24 12:00 01/09/24 12:00 01/09/24 12:00 01/09/24 12:00 01/09/24 12:00 Narrative Exam GENERAL: AAOX3 NEURO: RESIDENTIAL DIRECTOR grossly intact, moves extremities x4 HEENT: Moist mucosa. Eyes open, symmetrical, & clear CARDIO: No chest pain on palpation. Heart RRR, no obvious murmurs PULM: No noted coughing/dyspnea. Lungs CTA B/L GI: Abdomen soft, nondistended, mildly painful epigastrium. BSx4 URO/ENTERPRISE INTEGRATION ARCHITECT:: No further abnormalities noted. SKIN/MSK/EXT: No wounds/rashes/edema/amputations, no pain on palpation. Pedal pulses present B/L Discharge Plan Plan Patient Disposition: HOME (Self Care) Care Plan Goals: STOP taking ibuprofen or similar medications- advil, aleve Take pantoprazole 40mg twice daily for gastric protection Take sucralfate three times daily an hour before meals Continue antibiotic Keflex 500mg four times daily to complete antibiotic course Follow up with your primary care provider within one week You may need a referral to a desk manager for an endoscopy if symptoms persist. If you have any significant worsening of symptoms, please return to the ED immediately. Prescriptions/Referrals Prescriptions/Med Rec: New pantoprazole 40 mg Tablet,Delayed Release (Dr/Ec) 40 mg PO BID 30 Days Qty: 60 0RF sucralfate [Carafate] 100 mg/mL suspension 10 ml PO TID 14 Days Qty: 420 0RF cephalexin 500 mg tablet 500 mg PO QID 5 Days Qty: 20 0RF Continued olanzapine 10 mg Tablet 10 mg PO HS hydroxyzine HCl 50 mg Tablet 50 mg PO QDAY losartan 25 mg Tablet 25 mg PO QDAY prochlorperazine maleate [Compazine] 5 mg Tablet 5 mg PO Q6HR PRN (Reason: Nausea And Vomiting) Discontinued ibuprofen 800 mg Tablet 800 mg PO TID No Action hydrocodone-acetaminophen 5-325 mg Tablet 1 tab PO Q6H PRN (Reason: Pain, Moderate) Referrals: Ainsley Hinton, COCOA BEAN CLEANER [Primary Care Provider] - Patient/Caregiver Discharge Instructions Education Materials: Sepsis Print Language: Vietnamese Stand Alone Forms: Thao Award Info., Patient Portal Info Letter Discharge Order Discharge Orders: Discharge (Routine); Ordered 01/09/24 Ordered By: Alex (HOSPITALIST) Luana Quality Discharge Quality Measures VTE prophylaxis Attestestation MD Attestation Face to face evaluation was performed by me. I have personally seen and examined the patient. I discussed the assessment and plan with the entire medicine team. I reviewed available medical records, imaging studies, laboratory results. I agree with the above subjective data, objective findings, assessment and plan except as corrected by me or noted below #Sepsis secondary to #UTI #Leukocytosis #Epigastric pain and tenderness #Microscopic hematuria Discharged on oral cephalexin 500 mg 4 times daily for 5 more days to finish 7- day course Pantoprazole twice daily as well as sucralfate avoid ibuprofen follow-up with PCP if epigastric pain/tenderness does not improve recommend to have referral to gastroenterology
== END 2024-01-09 12:45 | disposition home or self-care (01) | DRG 720 ==
LOC: SERX 23:28 → SERHOLD 01-08 01:18 → S3SX 01-08 02:50
PROVIDERS: Nurse Practitioner Primary Care; Admitting Provider Internal Medicine; Emergency Provider Emergency Medicine; PCP Nurse Practitioner Family; Visit Provider Internal Medicine
DX: A41.51 Sepsis due to Escherichia coli [E. coli] (principal); N13.6 Pyonephrosis; K80.20 Calculus of gallbladder without cholecystitis without obstruction; C53.9 Malignant neoplasm of cervix uteri, unspecified; K29.60 Other gastritis without bleeding; T45.1X5A Adverse effect of antineoplastic and immunosuppressive drugs, initial encounter; F41.9 Anxiety disorder, unspecified; I10 Essential (primary) hypertension
CPT/HCPCS: 36415; 71045; 74176; 76705; 80048; 80053; 80076; 81001; 83605; 83690; 83735; 83880; 84145; 84484; 85025; 85610; 85730; 87040; 87077; 87086; 87186; 87400; 87811; 96361; 96365; 99285; J0696; J1650; J2405; J7030; J7040; S8037; 74181; A9270

== ENCOUNTER 2024-01-24 01:09 | Emergency (ER) | payer MEDICAID, SELFPAY ==
[2024-01-24 01:10] VITALS: BMI 34.3
[2024-01-24 01:14] VITALS: BP 156/78; PULSE 93; RESP 19; TEMP 37.5; O2SAT 98
--- NOTE | 2024-01-24 01:19 | PD.EDABDPN ---
ED Abdominal Pain RME/HPI General Chief Complaint: Abdominal Pain Stated complaint: LOWER ABDOMINAL PAIN Time seen by provider: 01/24/24 01:19 Arrival date/time: 01/24/24 01:09 RME / HPI RME / HPI narrative: This section includes all my notes and documentations, including HPI, PE, and ED course. Zoran Moore MD HPI: 68-year-old female here with about 3-day history of severe pain in the RLQ abdominal area. With nausea, no vomiting. Slight subjective fever. Some urinary frequency. Has unfortunate stage III cervical cancer[address] Dr. Kirkpatrick in [place] is her oncologist. Currently receiving chemotherapy in [place] and radiation here in [place]. Was admitted here several weeks ago with sepsis. No other complaints. ROS: Respiratory: negative except as documented in HPI. Gastrointestinal: negative except as documented in HPI. Genitourinary: negative except as documented in HPI. Musculoskeletal: negative except as documented in HPI. Skin: negative except as documented in HPI. Neurological: negative except as documented in HPI. Physical Exam: General: Alert and oriented. In severe pain. Eyes: Conjunctivae and lids clear. ENT: No nasal congestion. Neck: Supple. Heart: RRR. Lungs: No respiratory distress. Good air movement. No rhonchi, wheezing, rales. Abdomen: Soft with severe tenderness in RLQ region. Normal bowel sounds. No distension. No rebound or guarding. Back: No CVA tenderness. Skin: Warm and dry. Neuro: Alert and oriented X 3. I reviewed all diagnostic test results. My interpretation of the chest x-ray is no acute findings. My review of the abdominal CT report is right hydronephrosis without calculus but enlarged lymph nodes compressing the right ureter and signs of metastases and emphysematous cystitis. Blood tests and urine tests remarkable for UA showing many WBC and some bacteria. 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 Treatment here included IV fluid and Zofran and Reglan and Dilaudid and Rocephin. She felt much better. At 6 AM, the care of the patient was transferred to Dr Farfan. Zoran Moore MD Related Data Home Medications ?Medication ?Instructions ?Recorded ?Confirmed hydrocodone 5 mg-acetaminophen 325 1 tab PO Q6H PRN Pain, Moderate 01/08/24 01/17/24 mg tablet hydroxyzine HCl 50 mg tablet 50 mg PO QDAY 01/08/24 01/17/24 losartan 25 mg tablet 25 mg PO QDAY 01/08/24 01/17/24 olanzapine 10 mg tablet 10 mg PO HS 01/08/24 01/08/24 prochlorperazine maleate 5 mg 5 mg PO Q6HR PRN Nausea And 01/08/24 01/17/24 tablet (Compazine) Vomiting Previous Rx's ?Medication ?Instructions ?Recorded pantoprazole 40 mg tablet,delayed 40 mg PO BID 30 days #60 tabs 01/09/24 release Allergies Allergy/AdvReac Type Severity Reaction Status Date / Time No Known Allergies Allergy Verified 01/07/24 17:19 Course Quality Measures none Orders Category Date Time Status Bedside COVID-19 Antigen Test NOW Care 01/24/24 01:20 Completed Bedside Influenza A&B Antigen Test NOW Care 01/24/24 01:[address] Screening NOW Care 01/24/24 02:12 Completed Saline [Insert IV] NOW Care 01/24/24 01:20 Completed Straight [In and Out Catheter] X1 Care 01/24/24 01:[address] abdomen pelvis w con Stat Exams 01/24/24 02:12 Completed XR chest 1V portable Stat Exams 01/24/24 01:21 Completed Blood Culture (Lab) Stat Lab 01/24/24 01:37 Received CBC Stat Lab 01/24/24 01:37 Completed CMP [Comprehensive Metabolic Panel] Stat Lab 01/24/24 01:37 Completed CRP [C-Reactive Protein] Stat Lab 01/24/24 01:37 Completed ESR [Sed Rate (ESR)] Stat Lab 01/24/24 01:37 Completed Lactate (Lactic Acid) Stat Lab 01/24/24 01:37 Completed Magnesium Stat Lab 01/24/24 01:37 Completed Procalcitonin Stat Lab 01/24/24 01:37 Completed UA [Urinalysis] Stat Lab 01/24/24 01:45 Completed HYDROcodone/APAP 10/325 [[place] 10/325] Med 01/24/24 08:42 Discontinued 1 tab PO X1 ONE HYDROmorphone INJ [Dilaudid Inj] Med 01/24/24 01:20 Discontinued 1 mg IVP X1 ONE Metoclopramide Inj [Reglan Inj] Med 01/24/24 04:08 Discontinued 10 mg IVP X1 ONE Metoclopramide Inj [Reglan Inj] Med 01/24/24 04:21 Discontinued 10 mg IVP X1 ONE Ondansetron Inj [Zofran Inj] Med 01/24/24 01:20 Discontinued 4 mg IV X1 ONE Sodium Chloride 0.9% 1000 ml [Ns] 1,000 ml Med 01/24/24 01:20 Discontinued IV 999 mls/hr cefTRIAXone/D5w 1gm IV premix [Rocephin/D5w 1gm IV Med 01/24/24 01:20 Discontinued premix] 50 ml IV X1 Vital Signs Vital signs: Vital Signs Temperature 99.5 F 01/24/24 01:14 Pulse Rate 93 01/24/24 01:14 Respiratory Rate 19 01/24/24 01:14 Blood Pressure 156/78 H 01/24/24 01:14 Pulse Oximetry (%) 98 01/24/24 01:14 Oxygen Delivery Method Room Air 01/24/24 01:14 Abdominal Pain MDM Patient data External records reviewed:: [facility] previous records Clinical information provided by:: patient and family Social determinants that could affect healthcare access:: none Patient has the following chronic illnesses:: Cervical cancer with metastases How is presenting disease/condition affected by chronic disease/condition?: exacerbated by Evaluation data The following diagnostics were reviewed and interpreted by me:: lab results and radiology exam(s) Lab and/or radiology exams considered but not ordered:: None Interpretation Summary: Right hydronephrosis due to metastases and emphysematous cystitis Medications / Prescriptions Medications or Prescriptions considered but not ordered:: None Medication administrations:: Medication Administration History Discontinued Medications Hydrocodone Bitart/Acetaminophen (Hydrocodone/Apap 10/325 Tab) 1 tab PO X1 ONE Stop: 01/24/24 08:43 Last Admin: 01/24/24 08:57 Dose: 1 tab Documented By: JAMA Hydromorphone HCl (Hydromorphone Inj 2 Mg/Ml Vial) 1 mg IVP X1 ONE Stop: 01/24/24 01:21 Last Admin: 01/24/24 02:37 Dose: 1 mg Documented By: JOAQUÍN Ceftriaxone Sodium/Dextrose (Rocephin/D5w 1gm Iv Premix) 50 mls @ 100 mls/hr IV X1 ONE Stop: 01/24/24 01:49 Last Infusion: 01/24/24 03:44 Dose: Infused Documented By: Admin: 01/24/24 02:38 Dose: 100 mls/hr Documented By: JOAQUÍN Sodium Chloride (Ns) 1,000 mls @ 999 mls/hr IV .Q1H1M ONE Stop: 01/24/24 02:20 Last Infusion: 01/24/24 04:08 Dose: Infused Documented By: Admin: 01/24/24 02:38 Dose: 999 mls/hr Documented By: JOAQUÍN Metoclopramide HCl (Metoclopramide Inj 5 Mg/Ml Vial 2 Ml) 10 mg IVP X1 ONE; Protocol Stop: 01/24/24 04:09 Last Admin: 01/24/24 04:22 Dose: Not Given Documented By: MARTINEZ Non-Admin Reason: Discontinued Metoclopramide HCl (Metoclopramide Inj 5 Mg/Ml Vial 2 Ml) 10 mg IVP X1 ONE; Protocol Stop: 01/24/24 04:22 Last Admin: 01/24/24 04:29 Dose: 10 mg Documented By: JOAQUÍN Ondansetron HCl (Ondansetron Inj 2 Mg/Ml Inj 2 Ml) 4 mg IV X1 ONE; Protocol Stop: 01/24/24 01:21 Last Admin: 01/24/24 02:36 Dose: 4 mg Documented By: JOAQUÍN Acuña and Rocephin and Dilaudid and IV fluid Consultations Consultation(s) initiated? 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 Admission Request Was there a request for admission?: No Disposition Plan Disposition Plan: other (specify) (More care with Dr Farfan) Discharge Plan Plan Patient Disposition: HOME (Self Care) Prescriptions/Referrals Prescriptions/Med Rec: No Action hydrocodone-acetaminophen 5-325 mg Tablet 1 tab PO Q6H PRN (Reason: Pain, Moderate) olanzapine 10 mg Tablet 10 mg PO HS hydroxyzine HCl 50 mg Tablet 50 mg PO QDAY losartan 25 mg Tablet 25 mg PO QDAY prochlorperazine maleate [Compazine] 5 mg Tablet 5 mg PO Q6HR PRN (Reason: Nausea And Vomiting) pantoprazole 40 mg Tablet,Delayed Release (Dr/Ec) 40 mg PO BID 30 Days Qty: 60 0RF Referrals: Ainsley Hinton, ELECTRONICS ASSEMBLER [Primary Care Provider] - In 1 week Problem List Clinical Impression: Hydronephrosis, right, Metastasis from cervical cancer Patient/Caregiver Discharge Instructions Education Materials: Cancer Cervix Dc Additional Instructions: Al Dr. Moore le gustar?a verlo hoy inmediatamente despu?s del berto. Puede regresar al departamento de emergencias antes si los s?ntomas empeoran o si surge alg?n problema nuevo o preocupante. Print Language: Luxembourgish Stand Alone Forms: Thao Award Info., Patient Portal Info Letter
--- NOTE | 2024-01-24 01:21 | XR_ITS ---
Examination: PA chest single view TECHNIQUE: Upright PA chest single view Exam date and time: January 24, 2024 1351 hours INDICATIONS: Fever today. FINDINGS: Normal heart size No pneumonia or pulmonary edema Right internal jugular Port-A-Cath tip satisfactory position IMPRESSION: No pneumonia identified
[2024-01-24 01:51] LABS: Collection Type, Urine Clean Catch; RBC,Urine 0 /hpf (0-3)
[2024-01-24 01:54] LABS: Lactate (Lactic Acid) 1.2 mMol/L (0.4-2.0)
[2024-01-24 02:04] LABS: Basophils % (Auto) 1 % (0-2.5); Eosinophils # (Auto) 0.4 Thou/mm3 (0.0-0.5); Eosinophils % (Auto) 6 % (0-10); Hematocrit 33.9 % (36.0-46.0); Hemoglobin 11.2 g/dL (12.0-16.0); Immature Granulocytes % (Auto) 0 % (0-0); Immature Granulocytes Auto 0.02 Thou/mm3 (0.00-0.00); Lymphocytes # (Auto) 0.6 Thou/mm3 (1.0-4.8); Lymphocytes % (Auto) 10 % (10-50); Mean Corpuscular Hemoglobin 29.6 pg (25.0-35.0); Mean Corpuscular Volume 90 fL (80-100); Monocytes # (Auto) 0.5 Thou/mm3 (0.0-0.8); Monocytes % (Auto) 7 % (0-12); Neutrophils # (Auto) 5.1 Thou/mm3 (1.8-7.7); Neutrophils % (Auto) 76 % (37-80); Nucleated Red Blood Cell % 0 /100 WBC (0); Platelet Count 223 Thou/mm3 (140-440); RDW Standard Deviation 46.3 fL (36.4-46.3); Red Blood Count 3.78 Miln/mm3 (4.00-5.20); White Blood Count 6.7 Thou/mm3 (3.6-11.0)
[2024-01-24 02:08] LABS: Bacteria,Urine Rare; Bilirubin,Urine Negative (Negative); Blood,Urine Negative (Negative); Clarity,Urine Clear (Clear/Hazy); Color,Urine Lt-Yellow (Lt Yel-Yel); Glucose, Urine Negative (Negative); Ketones,Urine Negative (Negative); Leukocyte Esterase,Urine Positive (Negative); Nitrite,Urine Negative (Negative); PH,Urine 6.5 (5.0-7.0); Protein,Urine 1+ (Neg - Trace); Specific Gravity,Urine 1.018 (1.001-1.035); Squamous Epithelial Cell,Urine 2 /hpf (0-5); Urobilinogen,Urine Negative mg/dL (0.0-1.0); WBC,Urine 73 /hpf (0-5)
[2024-01-24 02:11] LABS: Sed Rate (ESR) 110 mm/hr (0-30)
--- NOTE | 2024-01-24 02:12 | XR_ITS ---
Examination: CT abdomen with intravenous contrast CT pelvis with intravenous contrast 2-D coronal reconstructions 2-D sagittal reconstructions Date and time of exam:January 24, 2024 1532 hours INDICATIONS: Onset severe right lower abdominal pain beginning today. CTDI: vol (mGy) 12.51 DLP: (mGycm) 760 Technique: Multiple axial sections of the abdomen and pelvis have been obtained. 64 slice high-resolution scanner used. 3 mm axial sections have been obtained, post intravenous injection 60 cc [id number] 2-D sagittal, coronal reconstructions obtained. Low dose protocols were performed. One or more of the following dose reduction techniques were used; automated exposure control, adjustment of the mA and/or KV according to patient size, use of iterative reconstruction technique. Findings: No visualized liver or splenic lesion No gallstones No pancreatic or adrenal mass Moderate bilateral renal parenchymal scar formation Mild right hydronephrosis Significant para-aortic pericaval lymphadenopathy extending into the right and left pelvis Normal appendix Urinary bladder wall is thickened Air in the urinary bladder 4.8 cm left adnexal cyst Anteverted uterus with enlarged endometrial canal, fluid density IMPRESSION: Normal appendix Moderate bilateral renal parenchymal scar formation Mild right hydronephrosis secondary to retroperitoneal and right pelvic lymphadenopathy, the lymphadenopathy differential would include metastatic lymphadenopathy, Hodgkin's disease non-Hodgkin's lymphoma, recommend PET CT scan follow-up Emphysematous cystitis Recommend pelvic sonography to assess enlarged endometrium enlarged left ovarian cyst
[2024-01-24 02:23] LABS: Alanine Aminotransferase 14 U/L (10-49); Albumin, Serum 4.3 gm/dL (3.4-4.8); Albumin/Globulin Ratio 1.3 (1.2-2.2); Alkaline Phosphatase 107 U/L (46-116); Anion Gap 8 (7-16); Aspartate Amino Transferase 17 U/L (0-34); BUN/Creatinine Ratio 16 Ratio (12-20); Bilirubin,Total 0.7 mg/dL (0.3-1.2); Blood Urea Nitrogen 14 mg/dL (9-23); C-Reactive Protein 13.9 mg/dL (0.0-0.9); Calcium 9.9 mg/dL (8.3-10.6); Calcium (Corrected) 9.9 mg/dL (8.5-10.1); Carbon Dioxide 23.9 mMol/L (20.0-31.0); Chloride 104 mMol/L (98-107); Creatinine (Component) 0.9 mg/dL (0.6-1.3); Estimated Creatinine Clearance 63.5 mL/min (>60); Globulin 3.4 gm/dL (2.3-3.5); Glucose 121 mg/dL (74-106); Magnesium 1.7 mg/dL (1.6-2.6); Osmolality,Calculated 273 (275-295); Potassium 3.9 mMol/L (3.4-5.1); Procalcitonin 0.07 ng/ml (0.0-0.49); Sodium 136 mMol/L (136-145); Total Protein 7.7 gm/dL (5.7-8.2); eGFR > 60 See Note
[2024-01-24] MEDS: ONDANSETRON INJ 2 MG/ML INJ 2 ML 4 MG IV (02:36)
[2024-01-24] MEDS: HYDROmorphone INJ 2 MG/ML VIAL 1 MG IVP (02:37)
[2024-01-24] MEDS: cefTRIAXone/D5w 1gm IV premix 50 ML IV (02:38)
[2024-01-24] MEDS: SODIUM CHLORIDE 0.9% 1000 ML 1,000 ML 999 ML IV (02:38)
[2024-01-24 03:15] VITALS: BP 155/98; RESP 18; O2SAT 100
[2024-01-24] MEDS: METOCLOPRAMIDE INJ 5 MG/ML VIAL 2 ML 10 MG IVP (04:29)
--- NOTE | 2024-01-24 04:29 | PC.NURSE ---
Pain has improved alot. now 2 on 0-0 scale however pt is experiencind rocío NV. MD made aware and aditional nausea meds given.
--- NOTE | 2024-01-24 04:58 | PRELIM_ITS ---
CT scan of the abdomen and pelvis with intravenous contrast (axial sections with sagittal and coronal reformats) January 24, 2024 0332 hoursClinical History: Severe right lower quadrant pain.Compariso n: No prior study is available for comparison. Findings:The lung bases are clear.Mild to moderate rig ht hydroureteronephrosis without evidence of obstructing ureteric calculus is noted. There are multip le low density enlarged right inferior paraaortic lymph nodes measuring up to 2.5 cm in short axis wi th mild compressing the right mid/distal ureter. There are also multiple enlarged lymph nodes along the bilateral common, external and internal iliac vessels, many of them demonstrate central low densi ty. There is also a rounded perirectal lymph node measuring 1.3 cm. Small bilateral renal cysts are n oted. The liver, gallbladder, pancreas, spleen and adrenals are unremarkable.No evidence of bowel obs truction. The appendix is within normal limits (images 175- 183). The urinary bladder demonstrates mi ld diffuse wall thickening with small amount of intravesical air and mild perivesical fat stranding. Bulky uterus is noted the possibility of noncalcified fibroids cannot be excluded. Cervix demonstrat es circumferential wall thickening with irregular spiculated margins. Small amount of fluid is noted in the uterine cavity. A 4 cm homogeneous fluid density cyst is noted in the left ovary. The right ov jero appears unremarkable. There is no free fluid or free air.Mild degenerative changes are identified in the spine. There is minimal anterolisthesis of L4 on L5. No suspicious osseous lesion is identif ied. Impression:1. Mild to moderate right hydroureteronephrosis without evidence of obstructing urete brenda calculus. Enlarged low density right inferior paraaortic lymph nodes with mild compression of the right ureter. Multiple other retroperitoneal lymph nodes along the iliac vessels and in the mesorect al space, suspicious for metastases. 2. Findings suggestive of acute cystitis. Intravesical air could be related to the recent intervention. The possibility of emphysematous cystitis is less likely oden raisa cannot be excluded.3. No evidence of appendicitis. 4. Altered uterus and cervix. Small amount of fluid in the uterine cavity. Large ovarian cyst in the left ovary. Recommend further evaluation with ultrasound. 5. Other findings as described above. Report Electronically Signed By: Delicia Ramos 01/23 4:57:28 AM [EST]
[2024-01-24 05:18] VITALS: BP 130/86; PULSE 76; RESP 19; O2SAT 95
--- NOTE | 2024-01-24 06:38 | PD.EDADDENDU ---
Emergency Room Addendum Addendum Narrative: 0600: Care assumed from Dr. Moore, the previous shift emergency physician. Past medical, surgical, social and family history reviewed. Vitals and home medications reviewed. I will assume the care of the patient at this time, pending reassessment and final disposition. Please refer to the emergency department record for history and examination from initial visit.? Nursing notes reviewed by me. Vital signs reviewed by me. [facility] records reviewed by me. I reviewed admission 01/07/2024 through 01/09/2024 for management of sepsis secondary to UTI. CT scan of abdomen performed 01/08/2024 showed moderate right and mild left hydronephrosis without ureteral calculi. I reviewed today's CT which shows improvement in hydronephrosis, there is mild hydronephrosis on the right. As the CT suggested, it is less likely emphysematous cystitis. 0645: Patient remains clinically stable throughout the emergency department visit. We reviewed all the results, analysis, and treatment plans. Patient reports she is [facility]:30 am. States she is starting week 3 out of a 5 week treatment. Only pain medications she is on is [place] 5's. Plan to consult with heme-onc Dr. Moore. 0815: I spoke with oncologist Dr. Moore. Discussed patients PMHx, HPI, ED course, exam findings, labs, and radiology results. Does not think there is anything acute at this time and findings are to be expected. Requested patient be sent there for further evaluation and to determine whether patient will undergo radiation today. States he will also adjust patients pain medications. Patient will be discharged home and is amenable to plan. Strict return precautions were outlined. Patient was discharged in stable condition. RADIOLOGY Ordering Physician: Date of Service: Procedure(s): Accession Number(s): CT scan of the abdomen and pelvis with intravenous contrast (axial sections with sagittal and coronal reformats) January 24, 2024 0332 hours Clinical History: Severe right lower quadrant pain. Comparison: No prior study is available for comparison. Findings: The lung bases are clear. Mild to moderate right hydroureteronephrosis without evidence of obstructing ureteric calculus is noted. There are multiple low density enlarged right inferior paraaortic lymph nodes measuring up to 2.5 cm in short axis with mild compressing the right mid/distal ureter. There are also multiple enlarged lymph nodes along the bilateral common, external and internal iliac vessels, many of them demonstrate central low density. There is also a rounded perirectal lymph node measuring 1.3 cm. Small bilateral renal cysts are noted. The liver, gallbladder, pancreas, spleen and adrenals are unremarkable. No evidence of bowel obstruction. The appendix is within normal limits (images 175- 183). The urinary bladder demonstrates mild diffuse wall thickening with small amount of intravesical air and mild perivesical fat stranding. Bulky uterus is noted the possibility of noncalcified fibroids cannot be excluded. Cervix demonstrates circumferential wall thickening with irregular spiculated margins. Small amount of fluid is noted in the uterine cavity. A 4 cm homogeneous fluid density cyst is noted in the left ovary. The right ovary appears unremarkable. There is no free fluid or free air. Mild degenerative changes are identified in the spine. There is minimal anterolisthesis of L4 on L5. No suspicious osseous lesion is identified. Impression: 1. Mild to moderate right hydroureteronephrosis without evidence of obstructing ureteric calculus. Enlarged low density right inferior paraaortic lymph nodes with mild compression of the right ureter. Multiple other retroperitoneal lymph nodes along the iliac vessels and in the mesorectal space, suspicious for metastases. 2. Findings suggestive of acute cystitis. Intravesical air could be related to the recent intervention. The possibility of emphysematous cystitis is less likely however cannot be excluded. 3. No evidence of appendicitis. 4. Altered uterus and cervix. Small amount of fluid in the uterine cavity. Large ovarian cyst in the left ovary. Recommend further evaluation with ultrasound. 5. Other findings as described above. Report Electronically Signed By: Delicia Ramos 01/24/2024 4:57:28 AM [EST]
[2024-01-24 06:50] VITALS: BP 147/77; PULSE 83; RESP 18; O2SAT 99
[2024-01-24 08:47] VITALS: BP 137/85; PULSE 69; RESP 19; TEMP 36.9; O2SAT 95
[2024-01-24] MEDS: HYDROcodone/APAP 10/325 TAB PO (08:57)
[2024-01-24 09:10] VITALS: BP 143/69; PULSE 63
== END 2024-01-24 09:12 | disposition home or self-care (01) ==
PROVIDERS: Emergency Medicine; Emergency Provider Emergency Medicine; PCP Nurse Practitioner Family
DX: N13.30 Unspecified hydronephrosis (principal); N30.80 Other cystitis without hematuria; C53.9 Malignant neoplasm of cervix uteri, unspecified; N83.202 Unspecified ovarian cyst, left side
CPT/HCPCS: 36415; 71045; 74177; 80053; 81001; 83605; 83735; 84145; 85025; 85652; 86140; 87040; 87400; 87811; 96365; 96375; 99285; A4649; J0696; J2405; J2765; J3490; J7030; Q9967; A9270

== ENCOUNTER 2024-01-26 07:34 | Outpatient (RCR) | payer MEDICAID, SELFPAY | END 2024-01-29 23:59 | disposition home or self-care (01) | LOC: SCTC 07:34 | PROVIDERS: PCP Nurse Practitioner Family; Referring Provider Nurse Practitioner Family; Visit Provider Radiology Therapeutic Radiology | DX: Z51.0 Encounter for antineoplastic radiation therapy (principal); C53.0 Malignant neoplasm of endocervix; R10.9 Unspecified abdominal pain | CPT/HCPCS: 77336; 77386; G6016 ==

== ENCOUNTER → 2024-01-31 | Outpatient (CLI) | payer MEDICAID, SELFPAY ==
--- NOTE | 2024-01-31 13:36 | XR_ITS ---
Examination: IR staple removal Port-A-Cath insertion site Exam date and time: January 31, 2024 1336 hours INDICATIONS: IR venous implantation Port-A-Cath January 17, 2024, patient returns for removal of staple closure devices TECHNIQUE AND FINDINGS: Skin prepped over the stable closure device site and sterile drape applied Hand hygiene Successful removal of the corie at the Port-A-Cath incision site Estimated blood loss 0 cc IMPRESSION: Successful IR staple removal Port-A-Cath insertion site
--- NOTE | 2024-01-31 14:53 | PC.NURSE ---
patient arrived for staple removal. eight corie removed. patient tolerated well. education given to patient. patient expressed verbal understanding.
== END | disposition home or self-care (01) ==
PROVIDERS: PCP Nurse Practitioner Family; Referring Provider Internal Medicine Hematology & Oncology; Visit Provider Internal Medicine Hematology & Oncology
DX: Z48.02 Encounter for removal of sutures (principal)

== ENCOUNTER 2024-02-29 08:26 | Outpatient (RCR) | payer MEDICAID, SELFPAY ==
--- NOTE | 2024-01-31 12:44 | CTCTRTNOTE_ITS ---
[facility] [address] [place], [place] [address] Weekly Management Date: 01/31/2024 ?? Name: DENNISE ALICEA : 1955 A. Patient is currently at 3680 cGy. B. Patient is tolerating treatment well. C. Patient is having the following side effects: Moderate pelvic pain despite taking Patrick prescribed by her medical oncologist.. D. Resume radiation therapy. Machine was down today. Will resume tomorrow. Electronically signed by: Jeovany Moore M.D. 01/31/2024 12:42 PM
--- NOTE | 2024-02-16 09:48 | CTCTSUMM_ITS ---
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 pelvis VMAT 10MV 5,750 cGy 25 230 cGy Approved (E) All conway were treated using customized MLC Blocks (F) Finding at Discharge: Patient tolerated treatment well and had only mild pelvic side effects. (G) Discharge Instructions and F/U Appt was given: The patient was also advised to continue follow-up with [facility] for brachytherapy and Dr. Kirkpatrick Cc: [facility] Wong Kirkpatrick MD Electronically signed by: Jeovany Moore MD, ABHISHEK 02/16/2024 9:46 AM
== END 2024-02-29 23:59 | disposition home or self-care (01) ==
LOC: SCTC 08:26
PROVIDERS: PCP Nurse Practitioner Family; Referring Provider Nurse Practitioner Family; Visit Provider Radiology Therapeutic Radiology
DX: Z51.0 Encounter for antineoplastic radiation therapy (principal); C53.1 Malignant neoplasm of exocervix; R10.2 Pelvic and perineal pain
CPT/HCPCS: 77336; 77386; 99212; G0463; G6016

== ENCOUNTER → 2024-07-12 | Outpatient (CLI) | payer MEDICAID, SELFPAY ==
--- NOTE | 2024-07-12 10:26 | XR_ITS ---
Examination: PA lateral chest 2 views TECHNIQUE: Upright PA lateral chest 2 views Date and time: July 12, 2024 1044 hours Comparison January 24, 2024 INDICATIONS: Cervical carcinoma diagnosis, coughing shortness of breath beginning 2 weeks ago. FINDINGS: Normal heart size Lungs are clear. Right internal jugular Port-A-Cath tip SVC Intact osseous structures IMPRESSION: No active disease
== END | disposition home or self-care (01) ==
PROVIDERS: PCP Nurse Practitioner Family; Referring Provider Nurse Practitioner Family; Visit Provider Nurse Practitioner Family
DX: R05.3 Chronic cough (principal)
CPT/HCPCS: 71046

== ENCOUNTER 2024-07-26 13:58 | Outpatient (RCR) | payer MEDICAID, SELFPAY ==
--- NOTE | 2024-07-26 14:52 | CTCFLWUP_ITS ---
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 Patient with CA of cervix stage IIb Underwent chemoradiation 5750 para-aortic and most of pelvis completed 02/10/2024. And brachytherapy completed at [facility] 2400 cGy boost. Completed 04/19/2024. Patient currently getting adjuvant Keytruda under Dr. Kirkpatrick?s direction. Had pelvic exam recently in [place] by her [employer] [employer] oncologist. Reportedly unremarkable. Also had CT imaging studies done in [place] and we will try to get a copy sent here. I will see her again in 3 months time, and perform a pelvic if she does not get it from anywhere else. Electronically signed by: Jeovany Moore M.D. 07/26/2024 2:50 PM
== END 2024-07-29 23:59 | disposition home or self-care (01) ==
LOC: SCTC 13:58
PROVIDERS: PCP Nurse Practitioner Family; Referring Provider Nurse Practitioner Family; Visit Provider Radiology Therapeutic Radiology
DX: C53.0 Malignant neoplasm of endocervix (principal); Z92.3 Personal history of irradiation
CPT/HCPCS: 99213; G0463

== ENCOUNTER 2024-09-19 22:51 | Emergency (ER) | payer MEDICAID, SELFPAY ==
[2024-09-19 22:53] VITALS: BMI 34.7
[2024-09-20 00:11] VITALS: BP 167/81; PULSE 48; RESP 16; TEMP 36.8; O2SAT 99; BMI 34.7
--- NOTE | 2024-09-20 00:48 | EKG_ITS ---
[facility] Test Date: 2024-09-20 Pat Name: DENNISE ALICEA Department: Room: - Gender: Female Surveillance Observer: : 1955 Requested By: Chip Villeda Order Number: [id number] Reading MD: Chip Villeda Measurements Intervals Adrian Rate: 57 P: 40 WY: 174 QRS: -20 QRSD: 96 T: 33 QT: 439 QTc: 429 Interpretive Statements SINUS BRADYCARDIA WITH OCCASIONAL ECTOPIC PREMATURE COMPLEXES MODERATE VOLTAGE CRITERIA FOR LVH, CONSIDER NORMAL VARIANT [MEETS CRITERIA IN ONE OF: R(aVL), S(V1), R(V5), R(V5/V6)+S(V1)] POSSIBLE ANTERIOR MYOCARDIAL INFARCTION , OF INDETERMINATE AGE [30 ms Q WAVE IN V3/V4, OR R < 0.2 mV IN V4] No previous ECG available for comparison /store/S0/[id number]/ecg/[id number].pdf
--- NOTE | 2024-09-20 00:52 | EDNOTE_ITS ---
<Statement entered by May Erickson MD - 09/20/24 04:47> As co-signing physician, I was present and available for consult prn. I concur with the plan and care as documented by the midlevel provider. Nausea/Vomit./Diarrhea-RME/HPI General Chief complaint: Anxiety Stated complaint: ANXIETY, VOMITING, DIZZY SINCE TAKING PAIN MED Time Seen by Provider: 09/20/24 00:47 Arrival date/time: 09/19/24 22:51 68F with history of HTN, anxiety, and cervical cancer (on chemo) presents to ED with 1 day of anxiety, generalized paresthesia, N/V, and fatigue after taking [place] 10-325 that patient was prescribed for 1 week of low back pain. Patient denies fall/trauma and dysuria/hematuria, as well as SOB, AMS, vision changes, and slurred speech. Limitations: no limitations Related Data Home Medications ?Medication ?Instructions ?Recorded ?Confirmed hydrocodone 5 mg-acetaminophen 325 1 tab PO Q6H PRN Pa in, Moderate 01/08/24 01/17/24 mg tablet hydroxyzine HCl 50 mg tablet 50 mg PO QDAY 01/08/24 losartan 25 mg tablet 25 mg PO QDAY 01/08/2401/16 olanzapine 10 mg tablet 10 mg PO HS 01/08/24 4 prochlorperazine maleate 5 mg 5 mg PO Q6HR PRN Nausea And 01/08/24 01/17/24 tablet (Compazine) Vomiting Previous Rx's ?Medication ?Instructions ?Recorded cefuroxime axetil 500 mg tablet 500 mg PO BID 7 days # 14 tabs 09/20/24 Allergies Allergy/AdvReac Type Severity Reaction Status Date / Time No Known Allergies Allergy Verified 09/19/24 22:52 Review of Systems Review of Systems Systems Reviewed: All systems reviewed, normal except as documented Constitutional Constitutional: Reports system reviewed and no additional complaints, except as documented, Denies fever(s) and Denies headache(s) ENT Ears, Nose, Mouth, and Throat: Reports as per HPI, Denies disequilibrium, Denies headache(s) and Reports vertigo Cardiovascular Cardiovascular: Reports system reviewed and no additional complaints, except as documented, Denies chest pain and Denies dyspnea Respiratory Respiratory: Reports system reviewed and no additional complaints, except as documented, Denies cough and Denies dyspnea Gastrointestinal Gastrointestinal: Reports system reviewed and no additional complaints, except as documented, Reports as per HPI, Denies abdominal pain, Reports nausea and Reports vomiting Musculoskeletal Musculoskeletal: Reports tingling Neurologic Neurologic: Reports system reviewed and no additional complaints, except as documented, Reports as per HPI, Denies confusion, Denies disequilibrium, Denies headache(s), Reports tingling and Reports vertigo Psychiatric Psychiatric: Denies confusion Past Medical History Past Medical History NEUROLOGIC: Negative Neurological Disorders CARDIAC: Positive Hypertension; Negative Cardiac Disorders or Congestive Heart Failure RESPIRATORY: Negative Chronic Obstructive Pulmonary Disease (COPD) or Asthma GASTROINTESTINAL: Positive Gastrointestinal Disorders (gastritis, nausea) and Gastroesophageal Reflux Disease GENITOURINARY: Negative Genitourinary Disorders or Renal Disease REPRODUCTIVE: Positive Previous Pregnancies (x12) MUSCULOSKELETAL: Negative Musculoskeletal Disorders ENT: Positive Cataracts ENDOCRINE: Negative Endocrine Disorders, Diabetes Mellitus Type 1 or Diabetes Mellitus Type 2 HEMATOLOGIC: Negative Blood Disorders or Sickle Cell Disease PSYCHO/SOCIAL: Positive Anxiety OTHER HISTORY: Positive Chemotherapy, Radiation Therapy, Cancer and Cervical Cancer; Negative Blood Transfusions, Blood Transfusion Reaction or Anesthesia Reactions Surgical History SURGICAL: Negative Cardiac Surgery, Endocrine Surgery, Abdominal Surgery, Joint Replacement or Section Social History SMOKING STATUS: Never smoker SECOND HAND EXPOSURE: No ED Exam General Limitations: Present no limitations General appearance: Present alert and in no apparent distress Head Head exam: Present atraumatic Eye Eye exam: Present PERRL and EOMI Expanded Eye Exam Pupils: Bilateral: size (pinpoint) ENT ENT exam: Present normal exam, normal oropharynx and mucous membranes moist Neck Neck exam: Present normal inspection, full ROM and trachea midline Chest Chest inspection: Present normal inspection and symmetric chest wall rise Respiratory Respiratory exam: Present normal lung sounds bilaterally Cardiovascular Cardiovascular exam: Present regular rate, normal rhythm and normal heart sounds Abdominal Exam Abdominal exam: Present soft and normal bowel sounds Extremities Exam Extremities exam: Present normal inspection and full ROM Back Exam Back exam: Present normal inspection and full ROM Neurological Exam Neurological exam: Present alert, oriented X3 and CN II-XII intact Psychiatric Psychiatric exam: Present normal affect and normal mood Skin Skin exam: Present warm, dry, intact and normal color Course Quality Measures none Orders Category Date Time Status EKG (ED ONLY) *Do not use* NOW Care 09/20/24 00:48 Completed EKG (ED Only) Stat Exams 09/20/24 00:48 Draft CBC Stat Lab 09/20/24 01:10 Completed Comprehensive Metabolic Panel Stat Lab 09/20/24 01:10 Completed Troponin I Stat Lab 09/20/24 01:10 Completed Urinalysis, C/S if Indicated Stat Lab 09/20/24 01:08 Completed Urine Culture Stat Lab 09/20/24 01:08 Received Ondansetron Odt [Zofran Odt] Med 09/20/24 00:49 Discontinued 4 mg PO X1 ONE cefuroxime axetiL [cefUROXime axetil] Med 09/20/24 03:30 Discontinued 250 mg PO X1 ONE Vital Signs Vital signs: Vital Signs Temperature 98.2 F 09/20/24 00:11 Pulse Rate 48 L 09/20/24 00:11 Respiratory Rate 16 09/20/24 00:11 Blood Pressure 167/81 H 09/20/24 00:11 Pulse Oximetry (%) 99 09/20/24 00:11 Oxygen Delivery Method Room Air 09/20/24 00:11 O2 at 99% on RA and WNLs Nausea/Vomiting/Diarrhea MDM Narrative MDM Narrative:: 68F with history of HTN, anxiety, and cervical cancer (on chemo) presents to ED with 1 day of anxiety, generalized paresthesia, N/V, and fatigue after taking [place] 10-325 that patient was prescribed for 1 week of low back pain. Patient denies fall/trauma and dysuria/hematuria, as well as SOB, AMS, vision changes, and slurred speech. Physical exam reveals pinpoint pupils, but normal EOM. CN II-XII grossly intact. Normal WOB. Patient is afebrile, calm, and alert. Speech normal. Gait normal. EKG is sinus bulmaro of 57. No leukocytosis or gross anemia. CMP unremarkable. Trop normal. UA suggests UTI. Will treat given low back pain and patient being on chemo. Patient felt better after meds and observation period. Patient data External records reviewed:: [facility] previous records Clinical information provided by:: patient Social determinants that could affect healthcare access:: mental health Patient has the following chronic illnesses:: HTN, anxiety, and cervical cancer How is presenting disease/condition affected by chronic disease/condition?: exacerbated by Evaluation data The following diagnostics were reviewed and interpreted by me:: lab results and EKG tracing(s) Lab and/or radiology exams considered but not ordered:: ordered Interpretation Summary: above Medications / Prescriptions Medications / Prescriptions considered but not ordered:: ordered Medication administrations:: Medication Administration History Discontinued Medications Cefuroxime Axetil (Cefuroxime Axetil 250 Mg Tablet) 250 mg PO X1 ONE Stop: 09/20/24 03:31 Ondansetron HCl (Ondansetron Odt 4 Mg Tabrap) 4 mg PO X1 ONE; Protocol Stop: 09/20/24 00:50 Last Admin: 09/20/24 01:11 Dose: 4 mg Documented By: BRYAN above Consultations Consultation(s) initiated? (list below): No Diagnosis Nausea Differential Diagnosis: traveler's diarrhea, food poisoning, gastroenteritis, clostridium difficile infection, drug-induced nausea and vomiting, dehydration and other (UTI) Most likely diagnosis given after review of the tests above:: drug adverse effect and UTI Admission Indicated Admission indicated?: not indicated Admission Request Was there a request for admission?: No Disposition Plan Disposition Plan: Discharge Discharge Attestation Discharge Attestation: The patient and all family members were given an opportunity to ask questions and understood the discharge instructions. Discharge instructions specifically effects, indications for sooner follow up or return to the emergency department, and the expected course of current diagnosis. Patient condition: Stable Discharge Plan Plan Patient Disposition: HOME (Self Care) Discharge Disposition comment: Stable Prescriptions/Referrals Prescriptions/Med Rec: New cefuroxime axetil 500 mg tablet 500 mg PO BID 7 Days Qty: 14 0RF No Action hydrocodone-acetaminophen 5-325 mg Tablet 1 tab PO Q6H PRN (Reason: Pain, Moderate) olanzapine 10 mg Tablet 10 mg PO HS hydroxyzine HCl 50 mg Tablet 50 mg PO QDAY losartan 25 mg Tablet 25 mg PO QDAY prochlorperazine maleate [Compazine] 5 mg Tablet 5 mg PO Q6HR PRN (Reason: Nausea And Vomiting) Referrals: Ainsley Hinton NP [Primary Care Provider] - In 1 week Problem List Clinical Impression: UTI (urinary tract infection), Adverse drug effect Patient/Caregiver Discharge Instructions Education Materials: ED Drug Reaction, Other, ED CYSTITIS Female Adult Additional Instructions: Please follow-up with PCP within 24-48 hours and return immediately if symptoms worsen. Can ask PCP about lower [place] dose or another med. Print Language: Malawian Stand Alone Forms: Patient Portal Info Letter GUSTABO/TURNER Supervising Physician GUSTABO/TURNER Supervising Physician: Dr. Erickson
[2024-09-20] MEDS: ONDANSETRON ODT 4 MG TABRAP PO (01:11)
[2024-09-20 01:17] LABS: Collection Type, Urine Clean Catch
[2024-09-20 01:20] LABS: Basophils # (Auto) 0.0 Thou/mm3 (0.0-0.2); Basophils % (Auto) 1 % (0-2.5); Eosinophils # (Auto) 0.2 Thou/mm3 (0.0-0.5); Eosinophils % (Auto) 3 % (0-10); Hematocrit 34.1 % (36.0-46.0); Hemoglobin 11.7 g/dL (12.0-16.0); Immature Granulocytes Auto 0.09 Thou/mm3 (0.00-0.00); Lymphocytes # (Auto) 1.2 Thou/mm3 (1.0-4.8); Lymphocytes % (Auto) 20 % (10-50); Mean Corpuscular HGB Conc 34.3 g/dl (31.0-37.0); Mean Corpuscular Hemoglobin 31.9 pg (25.0-35.0); Mean Corpuscular Volume 93 fL (80-100); Monocytes # (Auto) 0.5 Thou/mm3 (0.0-0.8); Monocytes % (Auto) 8 % (0-12); Neutrophils # (Auto) 4.3 Thou/mm3 (1.8-7.7); Neutrophils % (Auto) 68 % (37-80); Nucleated Red Blood Cell # 0.00 Thou/mm3 (0.00-0.00); Nucleated Red Blood Cell % 0 /100 WBC (0); Platelet Count 217 Thou/mm3 (140-440); RDW Standard Deviation 52.0 fL (36.4-46.3); Red Blood Count 3.67 Miln/mm3 (4.00-5.20); White Blood Count 6.3 Thou/mm3 (3.6-11.0)
[2024-09-20 01:27] LABS: Bilirubin,Urine Negative (Negative); Blood,Urine Negative (Negative); Budding Yeast,Urine Present; Clarity,Urine Clear (Clear/Hazy); Color,Urine Lt-Yellow (Lt Yel-Yel); Glucose, Urine Negative (Negative); Ketones,Urine Negative (Negative); Leukocyte Esterase,Urine Positive (Negative); Nitrite,Urine Negative (Negative); PH,Urine 7.0 (5.0-7.0); Protein,Urine Negative (Neg - Trace); RBC,Urine 6 /hpf (0-3); Specific Gravity,Urine 1.016 (1.001-1.035); Squamous Epithelial Cell,Urine 2 /hpf (0-5); Urobilinogen,Urine Negative mg/dL (0.0-1.0); WBC,Urine 38 /hpf (0-5)
[2024-09-20 01:38] LABS: Alanine Aminotransferase 15 U/L (10-49); Albumin, Serum 4.3 gm/dL (3.4-4.8); Albumin/Globulin Ratio 1.3 (1.2-2.2); Alkaline Phosphatase 98 U/L (46-116); Anion Gap 10 (7-16); Aspartate Amino Transferase 29 U/L (0-34); BUN/Creatinine Ratio 13 Ratio (12-20); Bilirubin,Total 0.8 mg/dL (0.3-1.2); Blood Urea Nitrogen 16 mg/dL (9-23); Calcium 9.2 mg/dL (8.3-10.6); Calcium (Corrected) 9.2 mg/dL (8.5-10.1); Carbon Dioxide 23.5 mMol/L (20.0-31.0); Chloride 105 mMol/L (98-107); Creatinine (Component) 1.2 mg/dL (0.6-1.3); Estimated Creatinine Clearance 47.8 mL/min (>60); Globulin 3.3 gm/dL (2.3-3.5); Glucose 118 mg/dL (74-106); Osmolality,Calculated 277 (275-295); Potassium 4.9 mMol/L (3.4-5.1); Sodium 138 mMol/L (136-145); Total Protein 7.6 gm/dL (5.7-8.2); Troponin I < 0.020 ng/mL (0.0-0.045); eGFR 49 See Note
[2024-09-20 01:39] LABS: Culture Indicated,Urine Yes
[2024-09-20 03:26] VITALS: BP 185/94; PULSE 55; RESP 17; TEMP 36.6; O2SAT 99
[2024-09-20 03:42] VITALS: RESP 18
== END 2024-09-20 03:43 | disposition home or self-care (01) ==
PROVIDERS: Physician Assistant; Emergency Provider Emergency Medicine; PCP Nurse Practitioner Family
DX: N39.0 Urinary tract infection, site not specified (principal); T40.2X5A Adverse effect of other opioids, initial encounter; R53.83 Other fatigue; R00.1 Bradycardia, unspecified; R11.2 Nausea with vomiting, unspecified
CPT/HCPCS: 36415; 80053; 81001; 84484; 85025; 87086; 93005; 99283; Q0162; A9270

== ENCOUNTER → 2024-09-28 | Outpatient (CLI) | payer MEDICAID, SELFPAY ==
--- NOTE | 2024-09-28 15:05 | XR_ITS ---
Examination: CT right hip without intravenous contrast CT pelvis without intravenous contrast. 2-D sagittal and coronal reconstructions. Date and time of exam:September 28, 2024, 1520 hours. INDICATIONS: Right hip pain beginning one month ago. CTDI: vol (mGy) :14.8. DLP: (mGycm) : 569. Technique: Multiple 3 mm axial sections of the pelvis have been obtained with the 64 slice high resolution scanner. 2-D sagittal and coronal reconstructions. Low dose protocols were performed. One or more of the following dose reduction techniques were used; automated exposure control, adjustment of the mA and/or KV according to patient size, use of iterative reconstruction technique. Findings: No focal liver or splenic lesions. Normal appendix. No bowel obstruction 32 mm hypodense mass left pelvis Urinary bladder is intact Mild to moderate narrowing right hip joint Mild to moderate narrowing left hip joint No fractures Bones of the pelvis acetabular regions anterior rami intact IMPRESSION: Recommend pelvic sonography to assess 32 mm hypodense mass left pelvis Mild to moderate narrowing hip joints If right hip pain persists, consider MRI hip without contrast follow-up
== END | disposition home or self-care (01) ==
PROVIDERS: PCP Nurse Practitioner Family; Referring Provider Nurse Practitioner Family; Visit Provider Nurse Practitioner Family
DX: R19.09 Other intra-abdominal and pelvic swelling, mass and lump (principal); M25.851 Other specified joint disorders, right hip
CPT/HCPCS: 73700

== ENCOUNTER 2024-10-24 13:51 | Outpatient (RCR) | payer MEDICAID, SELFPAY ==
--- NOTE | 2024-10-24 15:47 | CTCFLWUP_ITS ---
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 Stage IIb CA of cervix. Received chemoradiation external beam completed 02/10/2024. Completed brachytherapy [facility] 2400 cGy 04/19/2024. Received post XRT Keytruda under Dr. Kirkpatrick's direction. Had CT Pelvis performed 09/28/2024 revealing 32 mm hypodense mass left pelvis. I performed a pelvic exam today which seemed unremarkable no definite pelvic mass palpated. Ultrasound of pelvis will be performed and see patient again in 2 months time. Electronically signed by: Jeovany Moore M.D. 10/24/2024 3:45 PM
== END 2024-10-29 23:59 | disposition home or self-care (01) ==
LOC: SCTC 13:51
PROVIDERS: PCP Nurse Practitioner Family; Referring Provider Nurse Practitioner Family; Visit Provider Radiology Therapeutic Radiology
DX: C53.0 Malignant neoplasm of endocervix (principal); Z92.3 Personal history of irradiation
CPT/HCPCS: 99213; G0463

== ENCOUNTER → 2024-12-04 | Outpatient (CLI) | payer MEDICAID, SELFPAY ==
--- NOTE | 2024-12-04 15:00 | XR_ITS ---
Examination: Pelvic ultrasound, transabdominal, complete Technique: Transabdominal ultrasound of the pelvis performed using grayscale imaging Date and time of exam: December 04, 2024, 1510 hours INDICATIONS: Personal history cervical cancer post radiation therapy chemotherapy FINDINGS: Uterus 6.0 cm no uterine mass Endometrial stripe 3.0 cm Right ovary obscured by bowel gas Left ovary 3.1 cm arterial flow 3.4 x 3.1 cm cyst IMPRESSION: Abnormally thickened endometrial stripe, differential would include malignant neoplasm of the endometrium Recommend MRI pelvis follow-up pre and postcontrast
== END | disposition home or self-care (01) ==
PROVIDERS: PCP Family Medicine; Referring Provider Radiology Therapeutic Radiology; Visit Provider Radiology Therapeutic Radiology
DX: R93.89 Abnormal findings on diagnostic imaging of other specified body structures (principal); C53.0 Malignant neoplasm of endocervix
CPT/HCPCS: 76856

== ENCOUNTER 2024-12-26 08:50 | Outpatient (RCR) | payer MEDICAID, SELFPAY ==
--- NOTE | 2024-12-26 09:31 | CTCFLWUP_ITS ---
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 Patient with stage IIb CA of cervix Received chemoradiation external beam completed 02/10/2024. Completed brachytherapy [facility] 2400 cGy April 19 Received post XRT Keytruda under Dr. Kirkpatrick's direction. But this was stopped due to Thyroid dysfunction according to daughter PET scan at [facility] 11/10/2024 no definite signs of recurrence. Ultrasound 12/04/2024 thickened endometrium recommended MRI pre and postcontrast. Performed a pelvic exam essentially unremarkable with no sign of recurrence. Assessment.1. Stage IIb CA of cervix. 2 Completed chemoradiation. 02/10/2024 brachytherapy April 19 3. Keytruda stopped reportedly due to thyroid dysfunction. 4. PET scan unremarkable ultrasound suggest thickened endometrium. 5. Will get MRI pre and post and see her back in 3 months. Electronically signed by: Jeovany Moore M.D. 12/26/2024 9:29 AM .
== END 2024-12-29 23:59 | disposition home or self-care (01) ==
LOC: SCTC 08:50
PROVIDERS: PCP Nurse Practitioner Family; Referring Provider Family Medicine; Visit Provider Radiology Therapeutic Radiology
DX: Z08 Encounter for follow-up examination after completed treatment for malignant neoplasm (principal); Z85.41 Personal history of malignant neoplasm of cervix uteri; Z92.3 Personal history of irradiation; Z92.21 Personal history of antineoplastic chemotherapy; R93.89 Abnormal findings on diagnostic imaging of other specified body structures
CPT/HCPCS: 99213; G0463

== ENCOUNTER → 2025-02-28 | Outpatient (CLI) | payer MEDICAID, SELFPAY ==
--- NOTE | 2025-02-28 12:00 | XR_ITS ---
Examination: MRI pelvis with intravenous contrast. MRI pelvis without intravenous contrast. Date and time of exam: February 28, 2025 1246 hours INDICATIONS: Pelvic sonogram December 04, 2024 thickened endometrial stripe, left-sided pelvic pain 3 months anteverted uterus, Technique: Multiple axial, sagittal and coronal sections of the pelvis obtained. Transverse images, TR 6020, TE 107. T1 weighted transverse images, TR 582, TE 9.5. T2-weighted sagittal images, TR 4000, TE 105. T2-weighted sagittal images, TR 4000, TE 5. Coronal images, TR 4210, TE 107. Axial and coronal images are obtained post 15 cc intravenous injection, gadolinium. Findings: Uterus 6.0 x 3.8 x 3.2 cm Endometrial stripe is not thickened on this study Sagittal postcontrast image 22 demonstrates a 20 x 18 mm mass in the lower uterine segment versus cervix No adnexal mass No free fluid in the abdomen Intact osseous structures IMPRESSION: Recommend follow-up transvaginal pelvic sonography with a radiologist in attendance to confirm 20 x 18 mm mass in the lower uterine segment/cervix
== END | disposition home or self-care (01) ==
LOC: SMRI 11:25
PROVIDERS: PCP Nurse Practitioner Family; Referring Provider Radiology Therapeutic Radiology; Visit Provider Radiology Therapeutic Radiology
DX: R19.00 Intra-abdominal and pelvic swelling, mass and lump, unspecified site (principal); C53.0 Malignant neoplasm of endocervix
CPT/HCPCS: 72197; A9577